=== PATIENT | male | born 1950 | race Caucasian/White ===

== ENCOUNTER 2018-01-29 16:26 | Emergency (ER) | payer MEDICARE, OTHER ==
[~2018-01-29] VITALS: Ht 175.3 cm; Wt 103.9 kg
[2018-01-29] MEDS ORDERED: GLIPIZIDE 10 MG10 MG PO (16:48)
[2018-01-29] MEDS ORDERED: LISINOPRIL10 MG PO (16:49)
[2018-01-29] MEDS ORDERED: CELEXA10 MG PO (16:49)
[2018-01-29] MEDS ORDERED: NORVASC2.5 MG PO (16:49)
[2018-01-29] MEDS ORDERED: TOPROL XL100 MG PO (16:49)
[2018-01-29] MEDS ORDERED: ASPIR 8181 MG PO (16:49)
[2018-01-29] MEDS ORDERED: B12INJ IM (16:50)
[2018-01-29] MEDS ORDERED: ZOCOR20 MG PO (16:50)
[2018-01-29] MEDS ORDERED: METOLAZONE 2.52.5 M1 PO (16:50)
[2018-01-29] MEDS ORDERED: NOVOLOG100 UNIT/1 SUBQ (16:51)
[2018-01-29] MEDS ORDERED: BENADRYL25 MG PO (16:51)
[2018-01-29] MEDS ORDERED: FOLGARD TABLET1 EAC1 PO (16:51)
[2018-01-29] MEDS ORDERED: BACTRIM DS TAB1 EACH PO (17:22)
[2018-01-29] MEDS ORDERED: KEFLEX500 M1 PO (17:22)
[2018-01-29 18:30] VITALS: BP 120/60
== END 2018-01-29 18:31 | disposition home or self-care (01) ==
LOC: M.ERS 16:26
DX: L60.0 Ingrowing nail (principal); L03.031 Cellulitis of right toe; E11.9 Type 2 diabetes mellitus without complications; I10 Essential (primary) hypertension; E78.00 Pure hypercholesterolemia, unspecified; Z79.4 Long term (current) use of insulin

== ENCOUNTER → 2018-06-10 | Outpatient (CLI) | payer MEDICARE, OTHER ==
[~2018-06-10] MED LIST: ASPIR 8181 MG PO; B12INJ IM; BACTRIM DS TAB1 EACH PO; BENADRYL25 MG PO; CELEXA10 MG PO; FOLGARD TABLET1 EAC1 PO; GLIPIZIDE 10 MG10 MG PO; KEFLEX500 M1 PO; LISINOPRIL10 MG PO; METOLAZONE 2.52.5 M1 PO; NORVASC2.5 MG PO; NOVOLOG100 UNIT/1 SUBQ; TOPROL XL100 MG PO; ZOCOR20 MG PO
== END ==
LOC: M.RAD 12:41
DX: L03.031 Cellulitis of right toe (principal); E11.9 Type 2 diabetes mellitus without complications; M19.071 Primary osteoarthritis, right ankle and foot; I10 Essential (primary) hypertension; E78.00 Pure hypercholesterolemia, unspecified; Z79.4 Long term (current) use of insulin

== ENCOUNTER → 2018-08-04 | Outpatient (CLI) | payer MEDICARE, OTHER ==
[2018-08-04 13:51] LABS: CALCIUM 8.5 mg/dL (8.5-10.1); CREATININE 1.6 mg/dL (0.6-1.3); POTASSIUM 4.8 mmol/L (3.5-5.1)
== END ==
LOC: M.LAB 13:19
PROVIDERS: Surgery Vascular Surgery
DX: I70.213 Atherosclerosis of native arteries of extremities with intermittent claudication, bilateral legs (principal)

== ENCOUNTER 2019-02-13 16:43 | Inpatient (IN) | payer MEDICARE, OTHER ==
[~2019-02-13] VITALS: Ht 177.8 cm; Wt 104.3 kg
--- NOTE | ~2019-02-13 | CON ---
[address] [address] CONSULTATION Name: MOISE FAIRBANKS Room: [address] IN .R.#: [id number] Admission: 02/13/19 Attend Phys: Robyn Cardozo Discharge: Date of : 52 Report #: [id number] THIS REPORT FOR: //name// CC: Meryl Gloria DATE OF SERVICE: 02/15/2019 CHIEF COMPLAINT: Followup of total toenail avulsion to the right hallux for paronychia and lower extremity cellulitis. He is on parenteral vancomycin and ceftriaxone. He denies fevers, chills or malaise. He has good appetite. Denies pain to the toe. LABORATORY DATA: WBC 8.5, RBC 3.76, hemoglobin 11.3, hematocrit 33.1 and platelets 248,000. BUN 28, creatinine 1.2 and glucose 158. PHYSICAL EXAMINATION: VITAL SIGNS: Temperature 98.3, pulse 69, respirations 18 and blood pressure 124/42. EXTREMITIES: There is a substantial decrease in inflammation and cellulitis to the right lower extremity, which has receded and localized to the base of the right great toe. The nail bed has red granulation. No necrosis or fibronecrotic tissue. No exposed bone or tendon. The hallux has immediate digital capillary refill, with no signs of acute vascular embarrassment. The right lower extremity cellulitis is nearly resolved, with some residual low-grade inflammation to the hallux. His feet are warm, with palpable dorsalis pedis and posterior tibial pulses. 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 PLAN: The nail bed was cleansed, dried and dressed with gentamicin cream, Aquacel Ag and rolled gauze. The patient may ambulate in a surgical shoe, weightbearing as tolerated. Daily dressing changes to be performed same as above. I will follow up with the patient at [facility] next Thursday afternoon. By: 1235 0213Ddeepthi Manuel DPM /lauren
--- NOTE | ~2019-02-13 | CON ---
[address] [address] CONSULTATION Name: MOISE FAIRBANKS Room: [address] IN [facility]#: [id number] Admission: 02/13/19 Attend Phys: Robyn Cardozo Discharge: Date of : 52 Report #: [id number] THIS REPORT FOR: //name// CC: Meryl Gloria DATE OF SERVICE: 02/14/2019 REASON FOR CONSULTATION: Paronychia, right great toe with right lower extremity cellulitis complicated by type 2 diabetes mellitus. CHIEF COMPLAINT: The patient is a 68-year-old male admitted through the ED for worsening cellulitis to the right lower leg with great toenail infection. He had the medial aspect of the right great toenail removed at the [facility] last week, and was placed on oral cephalexin and Bactrim. He has had worsening inflammation, swelling and pain to the right lower extremity. He denies fevers, chills or malaise. 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 He is currently on parenteral vancomycin and ceftriaxone. Foot radiographs are negative for osteomyelitis. Venous Doppler negative for DVT. LABORATORY DATA: WBC 10.4, RBC 3.73, hemoglobin 11.2, hematocrit 33.2, platelets 258. BUN 54, creatinine 1.7, glucose 291, albumin 3.1. PHYSICAL EXAMINATION: Temperature 97.6, pulse 70, respiration 17, blood pressure 104/36. There is atul paronychia to the right great toe, medial border. The toenail is severely dystrophic and incurvated at the medial aspect with localized inflammation. The erythema extends from the base of the toe up along the dorsal foot to the lower leg consistent with resolving cellulitis. There is no exposed bone or tendon. The hallux is nontender due to neuropathy. There is scant serous drainage on his bandage and malodor. The remaining toenails are dystrophic consistent with onychomycosis. He has venous stasis dermatitis to both legs with +2 nonpitting edema. He has tinea pedis to his plantar feet bilaterally. IMPRESSION: Paronychia, right hallux, medial border with right lower extremity cellulitis. PLAN: The right great toenail was avulsed with a sterile nail forceps. No local anesthesia was used due to patient's profound peripheral sensory neuropathy. The nail bed was cleansed with saline, dried and dressed with silver foam and gauze. I will order topical gentamicin for subsequent daily dressing changes. I will follow the patient daily during his hospitalization. By: 1720 0321Ddeepthi Manuel DPM /lauren
[~2019-02-13 16:43] MED LIST changes: -B12INJ IM; +B12INJ PO; -LISINOPRIL10 MG PO; +NORVASC10 MG PO; -NORVASC2.5 MG PO; +ZESTRIL40 MG PO
[2019-02-13 16:51] VITALS: BP 104/59
[2019-02-13] MEDS ORDERED: GLUMETZA500 PO (16:57)
[2019-02-13] MEDS ORDERED: LIPITOR 20 MG T20 M1 PO (16:58)
[2019-02-13] MEDS ORDERED: LANTUS100 UNIT/M SUBQ (16:58)
[2019-02-13] MEDS ORDERED: OZEMPIC0.25 MG/0. IM (16:59)
[2019-02-13] MEDS ORDERED: PLAVIX 75 MG TA75 M1 PO (16:59)
[2019-02-13 17:21] LABS: ABSOLUTE BASOPHILS 0.1 thou/uL (0.0-0.2); ABSOLUTE EOSINOPHILS 0.3 thou/uL (0.0-0.7); ABSOLUTE LYMPHOCYTES 2.2 thou/uL (0.8-5.3); ABSOLUTE MONOCYTES 0.8 thou/uL (0.0-1.2); BASOPHILS 0.9 %; EOSINOPHILS 2.8 %; HEMATOCRIT 33.2 % (42.0-52.0); HEMOGLOBIN 11.2 gm/dL (14.0-18.0); LYMPHOCYTES 21.4 %; MCHC 33.7 g/dL (28.0-37.0); MCV 88.9 fL (80.0-100.0); MONOCYTES 7.4 %; MPV 7.8 fl. (7.2-11.1); NUCLEATED RBCS 0 /100WBC; PLATELET COUNT* 258 thou/uL (150-400); POLYS 67.5 %; RBC 3.73 mil/uL (4.50-6.00); WBC 10.4 thou/uL (4.0-11.0)
[2019-02-13 17:32] LABS: CALCIUM 8.6 mg/dL (8.5-10.1); CREATININE 1.7 mg/dL (0.6-1.3); POTASSIUM 4.5 mmol/L (3.5-5.1)
[2019-02-13 17:33] LABS: INR 0.9; PROTIME 9.6 Seconds (9.20-11.50)
[2019-02-13 17:37] LABS: ALBUMIN 3.1 g/dL (3.4-5.0); TOTAL BILIRUBIN 0.4 mg/dL (<0.1-1.0); TOTAL PROTEIN 7.1 g/dL (6.4-8.2)
[2019-02-13 20:40] VITALS: BP 150/53
[2019-02-13 21:00] VITALS: BP 120/44
[2019-02-13] MEDS ORDERED: CELEXA20 MG PO (21:29)
--- NOTE | 2019-02-14 06:07 | NUR ---
PATIENT ARRIVED ON THE FLOOR FROM ER ABOUT 2044. PATIENT ADMISSION HISTORY AND ASSESSMENT WAS COMPLETED CHARTED. IV ANTIBIOTICS WERE GIVEN ORDERED. PICTURE WAS PLACED ON CHART OF RIGHT FOOT CELLULITIS. PATIENT HAS HAD NO COMPLAINTS OF PAIN. WILL CONTINUE TO MONITOR.
[2019-02-14 07:50] VITALS: BP 128/40
[2019-02-14] MEDS ORDERED: LYRICA100 MG PO (10:52)
--- NOTE | 2019-02-14 13:53 | NUR ---
MANAGER GAMES SPOKE TO THE PATIENT TO DISCUSS HIS HOME SITUATION, DISCHARGE PLANNING, AND TO INFORM OF THE ROLE OF CM. PATIENT ALERT, ORIENTED, ADN INDEPENDENT AND ACTIVE. PATIENT IS QAGAN TAYAGUNGIN. PATIENT USES A CPAP AT [facility] AND BROUGHT IT HER TO [facility] WITH HIM. PATIENT ALSO OWNS A WALKER AND CANE, BUT DOES NOT USES THEM. PATIENT HAS A HX OF HH AND SNF, BUT THE WERE IN [place], [place]. PATIENT IS CURRENTLY IN I.V. ABT (ZOSYN), BUT IT IS UNCLEAR AT THIS TIME IF I.V. ABT'S WILL BE NEEDED AT D/C. PATIENT RESIDES AT HOME WITH SPOUSE AND SHE IS AVAILABLE TO ASSIST HIM WITH CARES NEEDED. CM WILL REMAIN AVAILABLE TO ASSIST AND FOLLOW NEEDED.
--- NOTE | 2019-02-14 14:28 | NUR ---
PT REPORTS UP AD INDRA IN ROOM W/O ANY NOTED DIFFICULTIES. PT INDICATES HE DOES NOT FEEL ACUTE PT SERVICES ARE INDICATED AT THIS TIME. WILL DISCHARGE PT ORDERS PER PT REQUEST.
[2019-02-14 16:00] VITALS: BP 104/36
--- NOTE | 2019-02-14 16:22 | NUR ---
PATIENT GIVEN PRN OXY IR FOR PAIN, GOOD RELIEF NOTED. IVF AND SCHED ABX INFUSING. PATIENT CHANGED FROM ZOSYN TO ROCEPHIN AND VANCOMYCIN. METFORMIN DC'D AND SSI STARTED THIS AFTERNOON. UP AD INDRA, NO DIFFICULTY NOTED. DR. KIMBALL FROM PODIATRY CONSULTED. PATIENT REFUSED PILLOW FOR RIGHT FOOT ELEVATION.
[2019-02-14 21:00] VITALS: BP 145/58
--- NOTE | 2019-02-15 05:24 | NUR ---
PT ALERT AND ORIENTED. VSS ON RA. MEDS GIVEN PER EMAR. PT WORE HOME CPAP @ HS. NO COMPLAINTS OF NAUSEA, PAIN THIS SHIFT. SMALL DRAINAGE NOTED ON DRESSING. OTHERWISE INTACT. PT UP AD INDRA. CALL LIGHT WITHIN REACH. HOURLY ROUNDINGS MADE. WILL CONTINUE TO MONITOR.
[2019-02-15 05:30] LABS: ABSOLUTE BASOPHILS 0.1 thou/uL (0.0-0.2); ABSOLUTE EOSINOPHILS 0.3 thou/uL (0.0-0.7); ABSOLUTE MONOCYTES 0.5 thou/uL (0.0-1.2); ABSOLUTE NEUTROPHILS 5.6 thou/uL (1.6-8.1); BASOPHILS 0.7 %; EOSINOPHILS 3.3 %; HEMATOCRIT 33.1 % (42.0-52.0); HEMOGLOBIN 11.3 gm/dL (14.0-18.0); LYMPHOCYTES 23.9 %; MCH 30.1 pg (26.0-34.0); MCHC 34.2 g/dL (28.0-37.0); MCV 88.2 fL (80.0-100.0); MONOCYTES 6.4 %; MPV 8.3 fl. (7.2-11.1); NUCLEATED RBCS 0 /100WBC; PLATELET COUNT* 248 thou/uL (150-400); POLYS 65.7 %; RBC 3.76 mil/uL (4.50-6.00); RDW-CV 13.9 % (10.5-14.5); WBC 8.5 thou/uL (4.0-11.0)
[2019-02-15 05:54] LABS: CALCIUM 8.7 mg/dL (8.5-10.1); CREATININE 1.2 mg/dL (0.6-1.3); MAGNESIUM 1.6 mg/dL (1.8-2.4)
[2019-02-15 07:30] VITALS: BP 124/42
[2019-02-15 12:53] VITALS: BP 124/42
--- NOTE | 2019-02-15 13:03 | NUR ---
DR. KIMBALL HERE THIS AFTERNOON TO SEE PATIENT, DRESSING CHANGED TO RIGHT GREAT TOE. WOUND CENTER APPT MADE FOR PATIENT WHEN HE DISCHARGES. IVF AND SCHED ABX INFUSING. INSULIN GIVEN WITH MEALS PER MAR SCALE.
[2019-02-15 15:48] VITALS: BP 117/41
--- NOTE | 2019-02-15 17:27 | NUR ---
PATIENT IS ALERT AND ORIENTED TODAY VERY PLEASANT. UP AD INDRA IN ROOM. SOME PAIN THAT IS SOMEWHAT CONTROLLED WITH ORAL PAIN MEDICATIONS. VITAL SIGNS ARE STABLE ON ROOM AIR. AGREE WITH PEVIOUS NURSES ASSESSMENT FROM TODAY. CALL LIGHT IS IN REACH WILL CONTINUE TO MONITOR.
[2019-02-15 20:20] VITALS: BP 147/73
--- NOTE | 2019-02-16 07:46 | NUR ---
PT HAD A ROUGH NIGHT. MULTIPLE NAUSEA AND EMESIS NOTED THIS SHIFT. ZOFRAN GIVEN Q4 PER DR ACHARYA'S ORDER. [place]ON [place] ALSO GIVEN. WITH LITTLE RELIEF NOTED. VSS ON RA. HOURLY ROUNDINGS MADE. CALL LIGHT WITHIN REACH. WILL CONTINUE TO MONITOR.
[2019-02-16 08:30] VITALS: BP 158/60
[2019-02-16] MEDS ORDERED: LANTUS100 UNIT/M SUBQ (11:43)
[2019-02-16] MEDS ORDERED: KEFLEX500 M1 PO (11:44)
[2019-02-16] MEDS ORDERED: MINOCIN50 MG PO (11:45)
[2019-02-16] MEDS ORDERED: SENNA S TABLET1 EACH PO (11:46)
[2019-02-16 14:00] VITALS: BP 124/42
[2019-02-16 14:45] VITALS: BP 124/42
--- NOTE | 2019-02-16 16:44 | NUR ---
I ASSUMED CARE OF THE PATIENT AT 0700. HE IS ALERT AND ORIENTED X4 AND IS UP AD INDRA IN HIS ROOM. BED IS IN THE LOW LOCKED POSITION AND CALL LIGHT IS IN REACH. HOURLY ROUNDING IS COMPLETED AND PATIENT NEEDS ARE MET. DRESSING IS RE-WRAPPED. PAIN IS DENIED AND ZOFRAN IS GIVEN EVERY 4 HOURS. HE IS DISCHARGED WITH UNDERSTANDING OF DRESSING CHANGES AND FOLLOW UP APPOINTMENTS. SCRIPTS ARE GIVEN. WOUND CARE SUPPLIES ARE SENT WITH THE PATIENT UNTIL HIS FOLLOW UP. LEFT WITH IN PERSONAL VEHICLE AT 1445.
== END 2019-02-16 14:45 | disposition home or self-care (01) | DRG 602 ==
LOC: M.ERS 16:43 → M.ORTHSURG 19:27 → M.TBA-ER 19:27 → M.ORTHSURG 20:36
PROVIDERS: Family Medicine; Nurse Practitioner Family; ADMIT Internal Medicine
DX: L03.115 Cellulitis of right lower limb (principal); N17.0 Acute kidney failure with tubular necrosis; E11.9 Type 2 diabetes mellitus without complications; I10 Essential (primary) hypertension; E78.00 Pure hypercholesterolemia, unspecified; E11.42 Type 2 diabetes mellitus with diabetic polyneuropathy; G47.33 Obstructive sleep apnea (adult) (pediatric); E78.5 Hyperlipidemia, unspecified; E11.51 Type 2 diabetes mellitus with diabetic peripheral angiopathy without gangrene; Z79.2 Long term (current) use of antibiotics; Z79.899 Other long term (current) drug therapy

== ENCOUNTER → 2019-02-23 | Outpatient (CLI) | payer MEDICARE, OTHER ==
[~2019-02-23] MED LIST changes: +CELEXA20 MG PO; +GLUMETZA500 PO; +LANTUS100 UNIT/M SUBQ; +LIPITOR 20 MG T20 M1 PO; +LYRICA100 MG PO; +MINOCIN50 MG PO; +OZEMPIC0.25 MG/0. IM; +PLAVIX 75 MG TA75 M1 PO; +SENNA S TABLET1 EACH PO
== END ==
LOC: M.WC 05:11
DX: E11.621 Type 2 diabetes mellitus with foot ulcer (principal); E11.51 Type 2 diabetes mellitus with diabetic peripheral angiopathy without gangrene; E11.42 Type 2 diabetes mellitus with diabetic polyneuropathy; E11.22 Type 2 diabetes mellitus with diabetic chronic kidney disease; N18.9 Chronic kidney disease, unspecified; E78.5 Hyperlipidemia, unspecified; G47.33 Obstructive sleep apnea (adult) (pediatric); Z79.82 Long term (current) use of aspirin; Z89.422 Acquired absence of other left toe(s)

== ENCOUNTER → 2019-02-24 | Outpatient (CLI) | payer MEDICARE, OTHER ==
[~2019-02-24] MED LIST changes: +LANTUS SUBQ; +TRAZODONE HCL50 MG PO; +VITAMIN D31000 UNIT PO
[2019-02-24 07:31] LABS: ABSOLUTE BASOPHILS 0.1 thou/uL (0.0-0.2); ABSOLUTE EOSINOPHILS 0.7 thou/uL (0.0-0.7); ABSOLUTE LYMPHOCYTES 2.9 thou/uL (0.8-5.3); ABSOLUTE MONOCYTES 0.7 thou/uL (0.0-1.2); ABSOLUTE NEUTROPHILS 6.7 thou/uL (1.6-8.1); BASOPHILS 0.8 %; EOSINOPHILS 5.9 %; HEMOGLOBIN 11.2 gm/dL (14.0-18.0); LYMPHOCYTES 26.2 %; MCH 29.3 pg (26.0-34.0); MCV 88.9 fL (80.0-100.0); MONOCYTES 6.7 %; MPV 7.4 fl. (7.2-11.1); NUCLEATED RBCS 0 /100WBC; PLATELET COUNT* 334 thou/uL (150-400); POLYS 60.4 %; RBC 3.82 mil/uL (4.50-6.00); RDW-CV 14.7 % (10.5-14.5); WBC 11.1 thou/uL (4.0-11.0)
[2019-02-24 07:38] LABS: CALCIUM 9.4 mg/dL (8.5-10.1); CREATININE 1.5 mg/dL (0.6-1.3); POTASSIUM 4.8 mmol/L (3.5-5.1)
[2019-02-24 08:29] LABS: ESR (SEDRATE) 88 mm/hr (0-20)
== END ==
LOC: M.LAB 07:12 → M.RAD 08:00 → M.MRI 08:30
PROVIDERS: Podiatrist Foot & Ankle Surgery
DX: E11.621 Type 2 diabetes mellitus with foot ulcer (principal); M19.071 Primary osteoarthritis, right ankle and foot; M86.8X7 Other osteomyelitis, ankle and foot

== ENCOUNTER → 2019-03-02 | Outpatient (CLI) | payer MEDICARE, OTHER ==
[~2019-03-02] MED LIST changes: -LANTUS SUBQ; -TRAZODONE HCL50 MG PO; -VITAMIN D31000 UNIT PO
== END ==
LOC: M.WC 00:41
DX: E11.621 Type 2 diabetes mellitus with foot ulcer (principal); L97.511 Non-pressure chronic ulcer of other part of right foot limited to breakdown of skin; E11.40 Type 2 diabetes mellitus with diabetic neuropathy, unspecified; E11.51 Type 2 diabetes mellitus with diabetic peripheral angiopathy without gangrene; E11.22 Type 2 diabetes mellitus with diabetic chronic kidney disease; N18.9 Chronic kidney disease, unspecified; E78.5 Hyperlipidemia, unspecified; G47.33 Obstructive sleep apnea (adult) (pediatric); Z89.432 Acquired absence of left foot

== ENCOUNTER → 2019-03-09 | Outpatient (CLI) | payer MEDICARE, OTHER ==
[~2019-03-09] MED LIST changes: +LANTUS SUBQ; +TRAZODONE HCL50 MG PO; +VITAMIN D31000 UNIT PO
== END ==
LOC: M.WC 05:22
DX: E11.621 Type 2 diabetes mellitus with foot ulcer (principal); L97.511 Non-pressure chronic ulcer of other part of right foot limited to breakdown of skin; L03.031 Cellulitis of right toe; E11.40 Type 2 diabetes mellitus with diabetic neuropathy, unspecified; E11.51 Type 2 diabetes mellitus with diabetic peripheral angiopathy without gangrene; E11.22 Type 2 diabetes mellitus with diabetic chronic kidney disease; N18.9 Chronic kidney disease, unspecified; G47.33 Obstructive sleep apnea (adult) (pediatric); Z89.432 Acquired absence of left foot

== ENCOUNTER → 2019-03-16 | Day surgery (SDC) | payer MEDICARE, OTHER ==
--- NOTE | 2019-03-16 14:54 | EKG ---
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
--- NOTE | 2019-03-21 09:57 | OP ---
[address] [address] OPERATIVE REPORT Name: TIKIMOISE GREY Room: [facility]#: [id number] Admission: 03/16/19 Attend Phys: Ayan Freire DO Discharge: Date of : 52 Report #: [id number] THIS REPORT FOR: //name// CC: Ayan Chambers DATE OF SERVICE: 03/16/2019 PREOPERATIVE DIAGNOSIS: Severe peripheral vascular disease with osteomyelitis of the right first toe distal phalanx. POSTOPERATIVE DIAGNOSIS: Severe peripheral vascular disease with osteomyelitis of the right first toe distal phalanx. OPERATION: 1. Ultrasound-guided access to left common femoral artery. 2. Ultrasound-guided retrograde popliteal artery access. 3. Right superficial femoral artery and popliteal artery angioplasty and stent. 4. Partial right first toe amputation. SURGEON: Ayan Freire DO BUTCHER FISH: JESSICA Narayanan ANESTHESIA: General. ESTIMATED BLOOD LOSS: 50 mL. FLUIDS: 600 crystalloid. URINE OUTPUT: None. SPECIMENS: Left partial first toe amputation and the left first toe proximal phalanx sent for bone culture. IMPLANTS: 6 x 200 and a 6 x 150 LifeStent in the right superficial femoral and popliteal artery. FINDINGS: He had an ultrasound demonstrated the left common femoral artery to be soft and compressible, suitable for access. Initial aortogram demonstrated patent infrarenal aorta, bilateral common, external iliac arteries with some mild diffuse atherosclerotic disease. His internal iliac arteries were occluded. Right common femoral, deep femoral artery were patent with some mild to moderate atherosclerotic disease. Right superficial femoral artery was occluded from its origin to just below the adductor hiatus with reconstitution of the above-knee popliteal artery. This was otherwise patent and had kind of [facility] [address] [place] [address] OPERATIVE REPORT Name: MOISE FAIRBANKS Room: [facility]#: [id number] Admission: 03/16/19 Attend Phys: Ayan Freire DO Discharge: Date of : 52 Report #: [id number] mild diffuse stenosis. Primary runoff was via the anterior tibial, which had really no residual stenosis. His peroneal and posterior tibial artery appeared to occlude the mid calf. Following angioplasty and stenting of the right SFA and popliteal artery, had excellent flow with minimal residual stenosis, inline flow into the dorsalis pedis artery. He had excellent bleeding at the toe amputation site. CLINICAL HISTORY: The patient is a 68-year-old man with known peripheral vascular disease, presents with osteomyelitis of the right distal phalanx of the first toe, is needed revascularization, toe amputation. DESCRIPTION OF PROCEDURE: After informed consent was obtained, the patient was taken to the operating room and placed in the OR bed in the supine position, administered general anesthesia by Anesthesia team. Bilateral groins were prepped and draped in usual sterile fashion. Full timeout was performed identifying correct patient and procedure. Using ultrasound guidance, left common femoral artery was identified, was accessed with micropuncture needle. These images were preserved. Using Seldinger technique, a microwire and microsheath were placed, ultimately upsized to a 6-[place] sheath, advanced the flush catheter in the infrarenal aorta and performed the aortoiliofemoral angiogram with findings noted above. Obtained up and over access across the bifurcation, positioned catheter in the right common femoral artery, performed the selective right lower extremity angiogram with findings noted above. I then exchanged out for a Glidewire Advantage 6-[place] up-and-over sheath and administered 8000 units of intravenous heparin. I then used a combination of the Glidewire Advantage and Seeker catheter and attempted to cross the SFA occlusion in antegrade fashion; however, we were unable to get a true lumen reentry distally at the popliteal reconstitution. Therefore, I used ultrasound guidance and accessed the popliteal artery in a retrograde fashion again preserving these images. Again using Seldinger technique, a microwire and microsheath were placed, ultimately I was able to exchange out for a Glidewire Advantage and a Seeker catheter. I was able to navigate retrograde up the popliteal artery cross the SFA occlusion. I was able to gain intraluminal position within the common femoral artery and the wire was able to pass into the sheath and I was able to obtain body floss technique. I then was able to pass the Seeker catheter over the wire into the distal popliteal artery and removed the wire and then replaced in antegrade fashion. Followup imaging confirmed intraluminal position within the popliteal artery. I then serial angioplastied the superficial femoral artery with a 5-mm Ultraverse balloon and then subsequently stented extending from the proximal popliteal artery up to the SFA origin. Post-dilated the stents with the 6 mm balloon with a good result and had islam of inline flow through the SFA and popliteal artery into the primarily anterior tibial artery runoff. At this point, satisfied with the result, the wire and the sheath were backed in the left external iliac artery, exchanged out for a short 6-[place] sheath, performed an angiogram through the [address] [address] OPERATIVE REPORT Name: MOISE FAIRBANKS Room: [facility]#: [id number] Admission: 03/16/19 Attend Phys: Ayan Freire DO Discharge: Date of : 52 Report #: [id number] sheath to confirm access position. I then deployed a 6-[place] Mynx closure device in standard fashion, partially reversed the heparin with 40 mg of protamine. Manual pressure was held for 5 minutes. Once hemostasis was ensured, sterile dressing was applied. I then turned my attention to the right foot, made a circumferential incision around the mid part of the right first toe. Dissection was carried down sharply. I disarticulated the interphalangeal joint and passed the distal toe off for specimen. Used a rongeur and debrided back the proximal phalanx and sent the part of the proximal phalanx for culture as well. Debrided the wound, irrigated with antibiotic solution once hemostasis was ensured, and then closed with partial amputation with interrupted 2-0 nylon sutures. Sterile dressings were applied. All sponge, sharp, instrument counts reported correct x 2. He tolerated the procedure well and transferred to recovery in stable condition. <ELECTRONICALLY SIGNED> By: Ayan Freire DO 03/21/19 0957 1428 1952Acarmen Freire DO /nt
--- NOTE | 2019-03-28 18:06 | PATH ---
[address] [place] [address] PATHOLOGY RPT PROCEDURE Name: TIKIMOISE GREY Room: [facility].#: [id number] Admission: 03/16/19 Date of : 52 Discharge: Report #: [id number] Path Case #: [id number] [facility] Accession Number: [id number] . 01 Material submitted: . toe - RIGHT FIRST TOE. Modifiers: right, first . 01 Clinical history: . Atherosclerosis right leg. . 02 Diagnosis: Right first toe: - Benign toe (missing toenail), with nonspecific ulceration, acute inflammation of soft tissues and prominent osteomyelitis noted to extend to proximal bony margin. . (CAROL:mml; 03/21/2019) QLM/03/21/2019 . 02 Electronically signed: . Edmund Lambert MD, Pathologist NPI- [id number] . 01 Gross description: . Received in formalin labeled "Moise Weaver, right first toe" is a distal toe amputation specimen measuring 3.1 x 2.5 x 2.1 cm. The toe is absent of a toenail, but the nailbed is present. On the distal aspect of the nailbed is a martinez-collins irregular ulceration or possible lesion measuring 0.7 x 0.6 cm. This area is located 1.1 cm from the resection margin. The resection margin is smooth and grossly viable and is inked black. The specimen is sectioned and a small amount of underlying bone is present, which is easily cut. Repairer Pump sections are submitted in cassettes A1-A2 following decalcification. ([facility] [place]; 03/17/2019) SYC/SYC . 02 Pathologist provided ICD-10: L97.519, M86.171 . 02 CPT . 069455, 324195 Specimen Comment: A courtesy copy of this report has been sent to Specimen Comment: [phone], . Specimen Comment: Report sent to / DR RITTER Performed at: [address] [facility] [id number] MD Osman Meyer MD Phone: [phone] Performed at: [address] [place] [address] PATHOLOGY RPT PROCEDURE Name: MOISE WEAVER Room: [facility].#: [id number] Admission: 03/16/19 Date of : 52 Discharge: Report #: [id number] Path Case #: [id number] [facility] [address] [place] [id number] MD Edmund Lambert MD Phone: [phone]
== END | disposition home or self-care (01) ==
LOC: M.SUR 07:08
DX: I70.211 Atherosclerosis of native arteries of extremities with intermittent claudication, right leg (principal); M86.171 Other acute osteomyelitis, right ankle and foot; L97.519 Non-pressure chronic ulcer of other part of right foot with unspecified severity; M79.89 Other specified soft tissue disorders; E11.51 Type 2 diabetes mellitus with diabetic peripheral angiopathy without gangrene; E11.40 Type 2 diabetes mellitus with diabetic neuropathy, unspecified; I10 Essential (primary) hypertension; E78.00 Pure hypercholesterolemia, unspecified; E78.5 Hyperlipidemia, unspecified; G47.33 Obstructive sleep apnea (adult) (pediatric); Z79.899 Other long term (current) drug therapy; Z98.890 Other specified postprocedural states; Z79.82 Long term (current) use of aspirin; Z87.891 Personal history of nicotine dependence

== ENCOUNTER → 2019-03-23 | Outpatient (CLI) | payer MEDICARE, OTHER | LOC: M.WC 03:34 | DX: T87.89 Other complications of amputation stump (principal); E11.621 Type 2 diabetes mellitus with foot ulcer; L97.511 Non-pressure chronic ulcer of other part of right foot limited to breakdown of skin; E11.40 Type 2 diabetes mellitus with diabetic neuropathy, unspecified; E11.51 Type 2 diabetes mellitus with diabetic peripheral angiopathy without gangrene; E11.22 Type 2 diabetes mellitus with diabetic chronic kidney disease; N18.9 Chronic kidney disease, unspecified; E78.5 Hyperlipidemia, unspecified; G47.33 Obstructive sleep apnea (adult) (pediatric); Y83.5 Amputation of limb(s) as the cause of abnormal reaction of the patient, or of later complication, without mention of misadventure at the time of the procedure ==

== ENCOUNTER → 2019-04-12 | Outpatient (CLI) | payer MEDICARE, OTHER ==
[2019-04-12 14:35] LABS: HEMATOCRIT 37.9 % (42.0-52.0); HEMOGLOBIN 12.3 gm/dL (14.0-18.0)
[2019-04-12 14:49] LABS: CALCIUM 9.1 mg/dL (8.5-10.1); CREATININE 1.3 mg/dL (0.6-1.3); POTASSIUM 4.9 mmol/L (3.5-5.1)
== END ==
LOC: M.LAB 14:16
PROVIDERS: Surgery Vascular Surgery
DX: I70.213 Atherosclerosis of native arteries of extremities with intermittent claudication, bilateral legs (principal)

== ENCOUNTER → 2019-04-13 | Outpatient (CLI) | payer MEDICARE, OTHER | LOC: M.WC 05:14 | DX: T87.89 Other complications of amputation stump (principal); E11.621 Type 2 diabetes mellitus with foot ulcer; L97.512 Non-pressure chronic ulcer of other part of right foot with fat layer exposed; E11.40 Type 2 diabetes mellitus with diabetic neuropathy, unspecified; E11.51 Type 2 diabetes mellitus with diabetic peripheral angiopathy without gangrene; E11.22 Type 2 diabetes mellitus with diabetic chronic kidney disease; N18.9 Chronic kidney disease, unspecified; E78.5 Hyperlipidemia, unspecified; G47.33 Obstructive sleep apnea (adult) (pediatric); Y83.5 Amputation of limb(s) as the cause of abnormal reaction of the patient, or of later complication, without mention of misadventure at the time of the procedure ==

== ENCOUNTER → 2019-04-21 | Outpatient (CLI) | payer MEDICARE, OTHER | LOC: M.WC 05:09 | DX: T87.89 Other complications of amputation stump (principal); E11.621 Type 2 diabetes mellitus with foot ulcer; L97.511 Non-pressure chronic ulcer of other part of right foot limited to breakdown of skin; E11.22 Type 2 diabetes mellitus with diabetic chronic kidney disease; N18.9 Chronic kidney disease, unspecified; E11.40 Type 2 diabetes mellitus with diabetic neuropathy, unspecified; E11.51 Type 2 diabetes mellitus with diabetic peripheral angiopathy without gangrene; E78.5 Hyperlipidemia, unspecified; G47.33 Obstructive sleep apnea (adult) (pediatric); Y83.5 Amputation of limb(s) as the cause of abnormal reaction of the patient, or of later complication, without mention of misadventure at the time of the procedure ==

== ENCOUNTER → 2019-04-28 | Outpatient (CLI) | payer MEDICARE, OTHER | LOC: M.WC 04:43 | DX: T87.89 Other complications of amputation stump (principal); E11.621 Type 2 diabetes mellitus with foot ulcer; L97.518 Non-pressure chronic ulcer of other part of right foot with other specified severity; E11.40 Type 2 diabetes mellitus with diabetic neuropathy, unspecified; E11.51 Type 2 diabetes mellitus with diabetic peripheral angiopathy without gangrene; E11.22 Type 2 diabetes mellitus with diabetic chronic kidney disease; N18.9 Chronic kidney disease, unspecified; E78.5 Hyperlipidemia, unspecified; G47.33 Obstructive sleep apnea (adult) (pediatric); Y83.5 Amputation of limb(s) as the cause of abnormal reaction of the patient, or of later complication, without mention of misadventure at the time of the procedure ==

== ENCOUNTER → 2019-09-28 | Outpatient (CLI) | payer OTHER ==
[2019-09-28 14:33] LABS: HEMATOCRIT 35.6 % (42.0-52.0); HEMOGLOBIN 12.4 gm/dL (14.0-18.0)
[2019-09-28 14:35] LABS: CREATININE 1.4 mg/dL (0.6-1.3)
== END ==
LOC: M.LAB 13:57
PROVIDERS: Surgery
DX: I70.213 Atherosclerosis of native arteries of extremities with intermittent claudication, bilateral legs (principal)

== ENCOUNTER → 2019-10-07 | Outpatient (CLI) | payer OTHER | LOC: M.WC 08:00 | DX: E11.621 Type 2 diabetes mellitus with foot ulcer (principal); L97.512 Non-pressure chronic ulcer of other part of right foot with fat layer exposed; E11.622 Type 2 diabetes mellitus with other skin ulcer; I70.238 Atherosclerosis of native arteries of right leg with ulceration of other part of lower leg; L97.811 Non-pressure chronic ulcer of other part of right lower leg limited to breakdown of skin; E11.40 Type 2 diabetes mellitus with diabetic neuropathy, unspecified; E11.51 Type 2 diabetes mellitus with diabetic peripheral angiopathy without gangrene; E11.22 Type 2 diabetes mellitus with diabetic chronic kidney disease; N18.9 Chronic kidney disease, unspecified; E78.5 Hyperlipidemia, unspecified; G47.33 Obstructive sleep apnea (adult) (pediatric); Z79.4 Long term (current) use of insulin; Z89.422 Acquired absence of other left toe(s); Z89.412 Acquired absence of left great toe; Z79.82 Long term (current) use of aspirin ==

== ENCOUNTER → 2019-10-11 | Outpatient (CLI) | payer OTHER | LOC: M.WC 03:37 | DX: E11.621 Type 2 diabetes mellitus with foot ulcer (principal); I70.235 Atherosclerosis of native arteries of right leg with ulceration of other part of foot; L97.511 Non-pressure chronic ulcer of other part of right foot limited to breakdown of skin; I70.202 Unspecified atherosclerosis of native arteries of extremities, left leg; E11.40 Type 2 diabetes mellitus with diabetic neuropathy, unspecified; E11.51 Type 2 diabetes mellitus with diabetic peripheral angiopathy without gangrene; E11.22 Type 2 diabetes mellitus with diabetic chronic kidney disease; N18.9 Chronic kidney disease, unspecified; E78.5 Hyperlipidemia, unspecified; G47.33 Obstructive sleep apnea (adult) (pediatric); Z89.422 Acquired absence of other left toe(s); Z79.4 Long term (current) use of insulin; Z79.82 Long term (current) use of aspirin ==

== ENCOUNTER 2019-11-23 15:47 | Inpatient (IN) | payer OTHER ==
[~2019-11-23] VITALS: Ht 175.3 cm; Wt 99.7 kg
--- NOTE | ~2019-11-23 | CON ---
[address] [address] CONSULTATION Name: MOISE FAIRBANKS Room: [address] IN .R.#: [id number] Admission: 11/23/19 Attend Phys: Robyn Cardozo Discharge: Date of : 52 Report #: [id number] THIS REPORT FOR: //name// cc: Meryl Chambers NP, Tammy NP ~ THIS REPORT FOR: //name// CC: Meryl Gloria DATE OF SERVICE: 12/07/2019 CHIEF COMPLAINT: Postoperative right foot with transmetatarsal amputation for osteomyelitis. He is on parenteral Rocephin and Flagyl with good tolerance. Surgical cultures grew bacteroides ovatus on both soft tissue and bone cultures. Surgical pathology showed clear resection site to the right third, fourth and fifth metatarsals, which had osteomyelitis at the distal aspect. For clarification, the right distal third, fourth and fifth metatarsals and their associated toes had osteomyelitis per pathology, with clear metatarsal resection margins to the third, fourth, and fifth metatarsals. The first and second metatarsals were free of osteomyelitis. LABORATORY DATA: WBC 10.1, RBC 3.26, hemoglobin 8.6, hematocrit 25.9, platelets 265. BUN 39, creatinine 1.0, glucose 75. PHYSICAL EXAMINATION: The incision is well coapted with minimal inflammation and some black eschar indicative of early dehiscence to the lateral incision. No underlying fluctuance or crepitation. No drainage or bleeding. The foot is warm with no pallor, cyanosis or signs of acute vascular embarrassment. The patient can obtain 90 degrees ankle joint dorsiflexion at the ankle. No popliteal tenderness or adenopathy. Negative Homans' and Walters sign to both legs. IMPRESSION: Status post right transmetatarsal amputation for osteomyelitis with clear resection margins, type 2 diabetes mellitus. PLAN: The incision was cleansed and redressed with Aquacel Ag, ABDs, and Kerlix with PRAFO boot. The patient to remain strictly nonweightbearing to the extremity. Awaiting halfway facility placement. By: 1413 2201Ddeepthi Manuel DPM /lauren
[2019-11-23 15:55] VITALS: BP 164/68
[2019-11-23 16:26] LABS: ABSOLUTE EOSINOPHILS 0.2 thou/uL (0.0-0.7); ABSOLUTE LYMPHOCYTES 1.6 thou/uL (0.8-5.3); ABSOLUTE MONOCYTES 0.6 thou/uL (0.0-1.2); ABSOLUTE NEUTROPHILS 7.8 thou/uL (1.6-8.1); BASOPHILS 0.2 %; EOSINOPHILS 2.1 %; HEMATOCRIT 26.3 % (42.0-52.0); HEMOGLOBIN 8.6 gm/dL (14.0-18.0); LYMPHOCYTES 15.9 %; MCHC 32.8 g/dL (28.0-37.0); MCV 82.2 fL (80.0-100.0); MONOCYTES 5.8 %; MPV 7.6 fl. (7.2-11.1); NUCLEATED RBCS 0 /100WBC; PLATELET COUNT* 326 thou/uL (150-400); RDW-CV 16.9 % (10.5-14.5); WBC 10.3 thou/uL (4.0-11.0)
[2019-11-23 16:37] LABS: APTT 32.7 Seconds (25.0-31.3); INR 1.1; PROTIME 11.3 Seconds (9.20-11.50)
[2019-11-23 16:39] LABS: CALCIUM 7.9 mg/dL (8.5-10.1); CREATININE 1.2 mg/dL (0.6-1.3)
[2019-11-23 16:49] LABS: ALBUMIN 2.2 g/dL (3.4-5.0); TOTAL BILIRUBIN 0.4 mg/dL (<0.1-1.0); TOTAL PROTEIN 6.5 g/dL (6.4-8.2)
[2019-11-23 19:38] LABS: URINE BILIRUBIN NEGATIVE (Negative); URINE BLOOD TRACE (Negative); URINE CLARITY CLEAR; URINE COLOR YELLOW; URINE GLUCOSE-RANDOM NEGATIVE (Negative); URINE KETONES NEGATIVE (Negative); URINE LEUKOCYTES-REFLEX NEGATIVE (Negative); URINE NITRITE-REFLEX NEGATIVE (Negative); URINE PROTEIN 2+ (Negative); URINE SPECIFIC GRAVITY 1.015 (1.005-1.030)
[2019-11-23 19:59] LABS: SQUAMOUS 0-3 Few /LPF (0-3); URINE RBC 0-2 Rare /HPF (0-2); URINE WBC-REFLEX 0-5 Rare /HPF (0-5)
[2019-11-23 20:00] LABS: BACTERIA-REFLEX None Seen /HPF (None Seen); CASTS None Seen /LPF (None Seen); CRYSTALS None Seen /LPF (None Seen)
[2019-11-23 20:15] VITALS: BP 118/56
[2019-11-23 20:42] VITALS: BP 147/58
[2019-11-24] VITALS: BP 142/86
[2019-11-24 04:00] VITALS: BP 138/48
[2019-11-24 05:41] LABS: HEMATOCRIT 25.8 % (42.0-52.0); HEMOGLOBIN 8.5 gm/dL (14.0-18.0); MCH 26.8 pg (26.0-34.0); MCHC 32.8 g/dL (28.0-37.0); MCV 81.9 fL (80.0-100.0); MPV 7.9 fl. (7.2-11.1); NUCLEATED RBCS 0 /100WBC; PLATELET COUNT* 302 thou/uL (150-400); RBC 3.15 mil/uL (4.50-6.00); RDW-CV 16.9 % (10.5-14.5); WBC 8.6 thou/uL (4.0-11.0)
[2019-11-24 06:06] LABS: CALCIUM 7.8 mg/dL (8.5-10.1); TOTAL BILIRUBIN 0.4 mg/dL (<0.1-1.0); TOTAL PROTEIN 6.3 g/dL (6.4-8.2)
[2019-11-24 06:46] LABS: ABSOLUTE LYMPHOCYTES 0.5 thou/uL (0.8-5.3); ABSOLUTE NEUTROPHILS 8.1 thou/uL (1.6-8.1); PLATELET ESTIMATE ADEQUATE
[2019-11-24 06:47] LABS: ANISOCYTOSIS 1+; POIKILOCYTOSIS 1+
[2019-11-24 08:30] VITALS: BP 124/50
[2019-11-24 12:16] VITALS: BP 116/41
--- NOTE | 2019-11-24 16:32 | EKG ---
[place] [address] ELECTROCARDIOGRAM REPORT Name: MOISE FAIRBANKS Room: [address] ADM IN 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: : 1950 Requested By: Joseluis King Order Number: [id number] MD: Tom Varghese Measurements Intervals [place] Rate: 84 P: 3 GA: 110 QRS: 35 QRSD: 81 T: 130 QT: 374 QTc: 443 Interpretive Statements Sinus rhythm with frequent pac's Borderline short GA interval Nonspecific T abnrm, anterolateral leads Baseline wander in lead(s) V1 Compared to ECG 03/16/2019 10:47:02 pac's are noted Electronically Signed On 11-24-2019 16:30:49 CDT by Tom Varghese [email or web address] <ELECTRONICALLY SIGNED> By: Tom Varghese MD, FACC 11/24/19 1630 1648 1648 Tom Varghese MD, [facility] /EPI
--- NOTE | 2019-11-24 16:34 | EKG ---
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1950 Requested By: Joseluis King Order Number: [id number] Antonio MD: Tom Varghese Measurements Intervals [place] Rate: 148 P: 80 [place]: 177 QRS: 45 QRSD: 97 T: 225 QT: 270 QTc: 424 Interpretive Statements Sinus tachycardia with pac's Borderline low voltage, extremity leads Repolarization abnormality, prob rate related, ischemia to be considered Compared to ECG 03/16/2019 10:47:02 Early repolarization now present ST (T wave) deviation now present Sinus rate has increased Electronically Signed On 11-24-2019 16:33:22 CDT by Tom Varghese [email or web address] <ELECTRONICALLY SIGNED> By: Tom Varghese MD, [facility] 11/24/19 1633 1734 1734 Tom Varghese MD, [facility] /EPI
--- NOTE | 2019-11-24 16:36 | EKG ---
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: : 1950 Requested By: Joseluis King Order Number: [id number] Antonio MD: Tom Varghese Measurements Intervals [place] Rate: 153 P: [place]: QRS: 51 QRSD: 77 T: 207 QT: 251 QTc: 401 Interpretive Statements Sinus tachycardia with frequent pac's Repolarization abnormality, prob rate related, consider ischemia Baseline wander in lead(s) III Compared to ECG 03/16/2019 10:47:02 no significant change Electronically Signed On 11-24-2019 16:35:06 CDT by Tom Varghese [email or web address] <ELECTRONICALLY SIGNED> By: Tom Varghese MD, [facility] 11/24/19 1635 1737 1737 Tom Varghese MD, [facility] /EPI
[2019-11-24] MEDS ORDERED: INSULIN AS100 UNIT/1 SUBQ (17:18)
--- NOTE | 2019-11-24 18:17 | 2DMMODE ---
[place] [address] 2 D/M-MODE ECHOCARDIOGRAM Name: MOISE FAIRBANKS Room: [address] IN [facility]#: [id number] Admission: 11/23/19 Attend Phys: Alexis Gloria Discharge: Date of : 52 Date of Service: 11/24/19 1816 Report #: [id number] THIS REPORT FOR: cc: Meryl Chambers NP, Tammy NP Liston, Michael J. MD [facility] ~ APPROVED REPORT Study performed: 11/24/2019 13:21:07 EXAM: Comprehensive 2D, Doppler, and color-flow Echocardiogram Patient Location: In-Patient Room #: [facility] Status: routine BSA: 2.12 HR: 68 bpm BP: 116/41 mmHg Rhythm: NSR Other Information Study Quality: Good Indications BNP ELEVATED 2D Dimensions IVSd: 8.72 (7-11mm) LVOT Diam: 19.81 (18-24mm) LVDd: 50.55 mm PWd: 8.34 (7-11mm) Ascending Ao: 34.27 (22-36mm) LVDs: 35.58 (25-40mm) Aortic Root: 32.45 mm Volumes Left Atrial Volume (Systole) LA ESV Index: 34.70 mL/m2 Aortic Valve AoV Peak Paramjit.: 1.91 m/s AO Peak Gr.: 14.67 mmHg LVOT Max P.18 mmHg AO Mean Gr.: 8.42 mmHg LVOT Mean P.63 mmHg LVOT Max V: 1.14 m/s AO V2 VTI: 40.53 cm LVOT Mean V: 0.76 m/s DEYSI (VTI): 1.89 cm2 LVOT V1 VTI: 24.90 [place] [address] 2 D/M-MODE ECHOCARDIOGRAM Name: MOISE FAIRBANKS Room: [address] IN [facility]#: [id number] Admission: 11/23/19 Attend Phys: Alexis Gloria Discharge: Date of : 52 Date of Service: 11/24/19 1816 Report #: [id number] Mitral Valve E/A Ratio: 1.54 MV Decel. Time: 190.23 ms MV E Max Paramjit.: 1.69 m/s MV PHT: 55.17 ms MVA (PHT): 3.99 cm2 TDI E/Lateral E': 28.17 E/Medial E': 24.14 Medial E' Paramjit.: 0.07 m/s Lateral E' Paramjit.: 0.06 m/s Pulmonary Valve PV Peak Paramjit.: 0.91 m/s PV Peak Gr.: 3.32 mmHg Left Ventricle The left ventricle is normal size. There is normal LV segmental wall motion. There is normal left ventricular wall thickness. Left ventricular systolic function is normal. LVEF is 55-60%. Moderate diastolic dysfunction is present (pseudonormal filling). Right Ventricle The right ventricle is normal size. The right ventricular systolic function is normal. Atria Left atrium is mildly dilated. The right atrium size is normal. Aortic Valve Moderate aortic valve sclerosis. Trace aortic regurgitation. Mild aortic stenosis. Mitral Valve There is mitral annular calcification. Mild mitral regurgitation. No evidence of mitral valve stenosis. Tricuspid Valve The tricuspid valve is normal in structure. Trace tricuspid regurgitation. Unable to assess PA pressure. Pulmonic Valve The pulmonary valve is normal in structure. Trace pulmonic regurgitation[place] [address] 2 D/M-MODE ECHOCARDIOGRAM Name: MOISE FAIRBANKS Room: [address]#: [id number] Admission: 11/23/19 Attend Phys: Alexis Gloria Discharge: Date of : 52 Date of Service: 11/24/19 1816 Report #: [id number] The aortic root is normal in size. IVC is normal in size and collapses >50% with inspiration. Pericardium There is no pericardial effusion. <Conclusion> The left ventricle is normal size. There is normal left ventricular wall thickness. Left ventricular systolic function is normal. LVEF is 55-60%. Moderate diastolic dysfunction is present (pseudonormal filling). Left atrium is mildly dilated. Moderate aortic valve sclerosis. Trace aortic regurgitation. Mild aortic stenosis. There is mitral annular calcification. Mild mitral regurgitation. Trace tricuspid regurgitation. Unable to assess PA pressure. IVC is normal in size and collapses >50% with inspiration. <ELECTRONICALLY SIGNED> By: Lauri Boo MD, FACC 11/24/191815 15 15 Lauri Boo MD, FACC /INF
[2019-11-24 20:12] VITALS: BP 130/56
[2019-11-25] VITALS: BP 117/48
[2019-11-25 04:00] VITALS: BP 137/45
[2019-11-25 05:29] VITALS: BP 135/56
[2019-11-25 07:35] VITALS: BP 117/48
[2019-11-25 12:00] VITALS: BP 131/45
--- NOTE | 2019-11-25 17:41 | CON ---
[address] [address] CONSULTATION Name: MOISE FAIRBANKS Room: [address] IN .R.#: [id number] Admission: 11/23/19 Attend Phys: Robyn Cardozo Discharge: Date of : 52 Report #: [id number] THIS REPORT FOR: //name// cc: Meryl Chambers NP, Tammy NP ~ THIS REPORT FOR: //name// CC: Meryl Gloria DATE OF SERVICE: 11/25/2019 INFECTIOUS DISEASE CONSULTATION ATTENDING PHYSICIAN: Dr. Ryan REASON FOR EVALUATION: Gangrene associated with the lateral aspect of the right foot, specifically involving the fourth and fifth toes as well as partially involving the third toe. HISTORY OF PRESENT ILLNESS: The patient has a known history of diabetes mellitus, complicated by peripheral neuropathy, has a significant vasculopathy, and has had previous procedures undertaken for revascularization of the right lower extremity. At this point, there is not felt to be any additional intervention that would help. He presented to the Emergency Room due to the gangrenous changes he noted. He denied any fevers. He denies any significant pulmonary or gastrointestinal related complaints. He is not encephalopathic. Empirically, he was started on therapy with metronidazole, levofloxacin, and single dose of vancomycin. ALLERGIES: None known. CURRENT MEDICATIONS: Include aspirin, citalopram, clopidogrel, cyanocobalamin, metolazone, lisinopril, metronidazole, trazodone, insulin, atorvastatin, glipizide, levofloxacin, insulin, metformin, pregabalin, and amlodipine. PAST MEDICAL HISTORY: Diabetes mellitus type 2, insulin requiring; peripheral neuropathy; hypertension; elevated cholesterol; and previous multiple toe amputations including on the left. SOCIAL HISTORY: Former smoker. No ethanol. No illicit drug use. FAMILY HISTORY: Noncontributory. REVIEW OF SYSTEMS: Otherwise, unremarkable 10-[place] [address] CONSULTATION Name: TIKIMOISE A Room: [address]#: [id number] Admission: 11/23/19 Attend Phys: Robyn Cardozo Discharge: Date of : 52 Report #: [id number] PHYSICAL EXAMINATION: GENERAL: He is alert, cooperative, and appropriate. He appears to be reasonably well nourished. He is not encephalopathic. VITAL SIGNS: Temperature 97.4, pulse 80, respirations 16, and blood pressure 131/45. SKIN: Warm and dry. No rashes. HEENT: Normocephalic. Extraocular muscles intact. NECK: Supple. LUNGS: Generally clear to auscultation. HEART: Regular. I do not appreciate murmur. ABDOMEN: Soft, nontender, and nondistended. EXTREMITIES: There are gangrenous changes noted on the right involving the lateral aspect distally engulfing the fourth and fifth toes onto the metatarsal region. Also, there is a plantar tissue infarct involving the third toe as well. There is a clear odor. There is a significant amount of marginal erythema. There is no purulence that I could appreciate. LABORATORY DATA: Blood cultures are sterile thus far. Initial CBC: White count of 8.6, H and H are 8.5 and 25.8, and platelets of 302. Electrolytes: Sodium 136, potassium 4.0, chloride 101, bicarbonate is 24, anion gap of 11, BUN and creatinine of 19 and 1.0, and glucose of 296. LFTs unremarkable. Albumin of 2.0, total protein 6.3, and estimated GFR of 74. Prealbumin of 9.8. Lactic acid initially 1.1. Urinalysis generally unremarkable. Arterial Doppler showed a graft. No evidence of high grade stenosis of the right common femoral or popliteal artery at length. ASSESSMENT AND PLAN: Gangrenous changes noted in the distal right lower extremity involving the fourth and fifth toes and partially the third. There is no active wet gangrene at this point. He is not overtly toxic. I think it is reasonable to continue empiric therapy. We would presume polymicrobial etiology anaerobes. At this point, it sounds as if plan is to allow autoamputation and see how he does clinically over the next 24-48 hours. We may well be able to transition to oral antibiotic. We will monitor expectantly. <ELECTRONICALLY SIGNED> By: Sean Barth MD 11/25/19 1741 1321 [id number] Barth MD /nt
[2019-11-25 20:03] VITALS: BP 125/45
[2019-11-26 03:31] LABS: CALCIUM 8.1 mg/dL (8.5-10.1); MAGNESIUM 1.5 mg/dL (1.8-2.4); POTASSIUM 3.5 mmol/L (3.5-5.1)
[2019-11-26 03:45] LABS: HEMOGLOBIN 8.6 gm/dL (14.0-18.0); MCH 27.1 pg (26.0-34.0); MCHC 33.2 g/dL (28.0-37.0); MCV 81.6 fL (80.0-100.0); MPV 7.5 fl. (7.2-11.1); RBC 3.19 mil/uL (4.50-6.00); RDW-CV 17.4 % (10.5-14.5); WBC 8.5 thou/uL (4.0-11.0)
[2019-11-26 09:30] VITALS: BP 110/60
[2019-11-26 16:00] VITALS: BP 125/46
[2019-11-26 20:03] VITALS: BP 110/63
[2019-11-27 03:46] LABS: HEMATOCRIT 27.4 % (42.0-52.0); HEMOGLOBIN 8.9 gm/dL (14.0-18.0); MCH 26.8 pg (26.0-34.0); MCHC 32.6 g/dL (28.0-37.0); MCV 82.2 fL (80.0-100.0); MPV 7.3 fl. (7.2-11.1); RBC 3.33 mil/uL (4.50-6.00); RDW-CV 17.1 % (10.5-14.5); WBC 10.1 thou/uL (4.0-11.0)
[2019-11-27 04:00] LABS: ALBUMIN 2.1 g/dL (3.4-5.0); CREATININE 1.1 mg/dL (0.6-1.3); MAGNESIUM 1.5 mg/dL (1.8-2.4); POTASSIUM 3.7 mmol/L (3.5-5.1); TOTAL BILIRUBIN 0.2 mg/dL (<0.1-1.0); TOTAL PROTEIN 5.9 g/dL (6.4-8.2)
[2019-11-27 08:50] VITALS: BP 115/49
[2019-11-27 16:49] VITALS: BP 117/43
[2019-11-27 20:14] VITALS: BP 124/56
[2019-11-28 20:00] VITALS: BP 118/44
[2019-11-29 10:09] VITALS: BP 114/57
[2019-11-29 19:55] VITALS: BP 124/66
[2019-11-30 00:15] VITALS: BP 104/54
[2019-11-30 04:00] VITALS: BP 114/47
[2019-11-30 08:10] VITALS: BP 121/61
[2019-11-30 12:00] VITALS: BP 126/44
[2019-11-30 14:31] LABS: ABSOLUTE BASOPHILS 0.1 thou/uL (0.0-0.2); ABSOLUTE EOSINOPHILS 0.1 thou/uL (0.0-0.7); ABSOLUTE LYMPHOCYTES 1.2 thou/uL (0.8-5.3); ABSOLUTE MONOCYTES 0.6 thou/uL (0.0-1.2); ABSOLUTE NEUTROPHILS 6.8 thou/uL (1.6-8.1); BASOPHILS 0.7 %; EOSINOPHILS 1.6 %; HEMATOCRIT 29.8 % (42.0-52.0); HEMOGLOBIN 9.6 gm/dL (14.0-18.0); LYMPHOCYTES 13.3 %; MCH 26.2 pg (26.0-34.0); MCV 81.8 fL (80.0-100.0); MONOCYTES 6.5 %; MPV 7.1 fl. (7.2-11.1); NUCLEATED RBCS 0 /100WBC; PLATELET COUNT* 368 thou/uL (150-400); POLYS 77.9 %; RBC 3.65 mil/uL (4.50-6.00); RDW-CV 17.5 % (10.5-14.5); WBC 8.7 thou/uL (4.0-11.0)
[2019-11-30 14:38] LABS: CALCIUM 8.5 mg/dL (8.5-10.1); CREATININE 1.2 mg/dL (0.6-1.3)
[2019-11-30 16:00] VITALS: BP 151/57
[2019-11-30 20:48] VITALS: BP 137/71
[2019-12-01 08:47] LABS: HEMATOCRIT 31.9 % (42.0-52.0); HEMOGLOBIN 10.2 gm/dL (14.0-18.0); MCH 25.9 pg (26.0-34.0); MCHC 31.9 g/dL (28.0-37.0); MCV 81.3 fL (80.0-100.0); MPV 7.1 fl. (7.2-11.1); RBC 3.93 mil/uL (4.50-6.00); WBC 12.7 thou/uL (4.0-11.0)
[2019-12-01 08:53] LABS: CALCIUM 8.7 mg/dL (8.5-10.1); CREATININE 1.1 mg/dL (0.6-1.3); POTASSIUM 4.2 mmol/L (3.5-5.1)
[2019-12-01 08:55] VITALS: BP 97/50
[2019-12-01 21:00] VITALS: BP 95/54
[2019-12-02] VITALS: BP 116/44
[2019-12-02 04:00] VITALS: BP 103/41
[2019-12-02 04:54] LABS: HEMATOCRIT 25.3 % (42.0-52.0); MCH 26.1 pg (26.0-34.0); MCHC 32.4 g/dL (28.0-37.0); MCV 80.4 fL (80.0-100.0); RBC 3.15 mil/uL (4.50-6.00); RDW-CV 17.8 % (10.5-14.5); WBC 10.4 thou/uL (4.0-11.0)
[2019-12-02 04:59] LABS: HEMOGLOBIN 8.2 gm/dL (14.0-18.0)
[2019-12-02 05:30] LABS: ALBUMIN 1.8 g/dL (3.4-5.0); CALCIUM 7.9 mg/dL (8.5-10.1); CREATININE 1.7 mg/dL (0.6-1.3); MAGNESIUM 1.7 mg/dL (1.8-2.4); PHOSPHORUS* 4.7 mg/dL (2.5-4.9)
[2019-12-02 09:10] VITALS: BP 103/50
[2019-12-02 13:00] VITALS: BP 94/47
[2019-12-02 20:22] VITALS: BP 104/40
[2019-12-03 05:31] VITALS: BP 105/40
[2019-12-03 09:00] VITALS: BP 116/48
[2019-12-03 16:08] VITALS: BP 100/58
[2019-12-04] VITALS: BP 112/49
[2019-12-04 15:00] VITALS: BP 112/40
[2019-12-04 21:06] VITALS: BP 110/39
[2019-12-05 08:00] VITALS: BP 106/44
[2019-12-05 08:36] LABS: HEMATOCRIT 28.5 % (42.0-52.0); MCH 25.6 pg (26.0-34.0); MCHC 31.7 g/dL (28.0-37.0); MCV 80.7 fL (80.0-100.0); RBC 3.53 mil/uL (4.50-6.00); WBC 13.1 thou/uL (4.0-11.0)
[2019-12-05 08:54] LABS: CALCIUM 8.5 mg/dL (8.5-10.1); CREATININE 1.2 mg/dL (0.6-1.3); PHOSPHORUS* 3.7 mg/dL (2.5-4.9); POTASSIUM 4.7 mmol/L (3.5-5.1)
[2019-12-05 16:00] VITALS: BP 111/43
[2019-12-05 20:30] VITALS: BP 130/36
[2019-12-06 04:30] VITALS: BP 127/60; BP 136/55
[2019-12-06 08:54] VITALS: BP 131/65
[2019-12-06 13:01] LABS: MAGNESIUM 1.8 mg/dL (1.8-2.4); PHOSPHORUS* 4.3 mg/dL (2.5-4.9); POTASSIUM 4.1 mmol/L (3.5-5.1)
[2019-12-06 16:00] VITALS: BP 102/47
--- NOTE | 2019-12-06 17:07 | PATH ---
[address] [address] PATHOLOGY RPT PROCEDURE Name: TIKIMOISE A Room: [address] IN M.R.#: [id number] Admission: 11/23/19 Date of : 52 Discharge: Report #: [id number] Path Case #: [id number] Accession Number: [id number] . 01 Material submitted: . foot - METATARSALS 1ST TO 5TH RIGHT FOOT AND TOES 1ST TO 5TH RIGHT FOOT. Modifiers: first, fifth, right . 01 Clinical history: . Gangrene right foot . 02 Diagnosis: Metatarsals first to fifth, toes first to fifth right foot: - Five benign toes including evidence of remote previous amputation of distal great toe and gangrenous/necrotic fourth and fifth toes, with extensive acute inflammation and necrosis of soft tissue of toes three, four and five and osteomyelitis of toes three, four and five. - Benign metatarsals three through five, each with osteomyelitis and each with surgical margins free of osteomyelitis. - Benign metatarsals one and two, without osteomyelitis identified. (CAROL:pit 12/06/2019) QTP 12/06/2019 1606 Local . 02 Electronically signed: . Edmund Lambert MD, Pathologist NPI- [id number] . 01 Gross description: . The specimen is received in formalin, labeled "Moise Weaver, metatarsals first to fifth, toes first to fifth right foot". Received are five amputated toes. The great toe is received separately measuring 4.3 x 3.2 x 2.7 cm. Toes 2 through 5 are attached to each other and have an overall measurement of 6.5 x 5.6 x 2.4 cm in greatest dimensions. The bone margins of toes 1 through 3 are smooth and concave in appearance, consistent with disarticulation. The bone margins of toes 4 and 5 are slightly jagged in appearance. Toes 4 and 5 are blackened and mummified in appearance. The distal/plantar aspect of toe 3 displays a poorly circumscribed, irregular in contour and brown-black lesion measuring 2.5 x 2.5 cm, which is 0.8 cm from the closest skin margin. Toe 2 displays a pale martinez to slightly dusky appearance on the epidermal surface. The nail is absent on the great toe and the epidermal surface is pale martinez to slightly dusky in appearance. The distal great toe appears to have been remotely previously amputated. Sectioning through the bone margins of toes margins have fragmented. Sectioning through the bone margins of toes 1 through 3 is unable to be accomplished by a scalpel. . Also received within the specimen container are five metatarsals. Metatarsals 1 through 4 are attached to each other and have an overall [facility] [address] [place] [address] PATHOLOGY RPT PROCEDURE Name: MOISE WEAVER Room: [address] IN .R.#: [id number] Admission: 11/23/19 Date of : 52 Discharge: Report #: [id number] Path Case #: [id number] measurement of 6.3 x 4.3 x 2.7 cm. The fifth metatarsal measures 3.2 x 1.6 x 1.6 cm in greatest dimensions. All five bone margins are blunt in appearance, consistent with transection, and are inked as follows: Metatarsal 1-black, metatarsal 2-blue, metatarsal 3-yellow, metatarsal 4-red, metatarsal 5-orange. The specimen is submitted representatively as follows: . A1 advertising sales representative sections on lesion from dorsal/plantar aspect of toe 3 A2 fragmented bone margin of toe 4, following decalcification A3 fragmented bone margin of toe 5, following decalcification A4 longitudinal section through bone margin of first metatarsal, following decalcification A5 longitudinal section through bone margin of second metatarsal, following the calcification A6 longitudinal section through bone margin of third metatarsal, following decalcification A7 longitudinal section through bone margin of fourth metatarsal, following decalcification A8 longitudinal section through bone margin of fifth metatarsal, following decalcification. . Gross photographs are taken. (CAA; 12/01/2019) QAC/QAC 12/06/2019 1146 Local . 02 Pathologist provided ICD-10: I96, L08.9, M86.8X7 . 02 CPT . 921575, 718695 Specimen Comment: A courtesy copy of this report has been sent to [phone] Specimen Comment: [phone], Specimen Comment: Report sent to ,DR DOTSON / DR RITTER Performed at: [address], [place] [id number] MD Osman Meyer MD Phone: [phone] Performed at: [address] [place] [address] Shreya Wagner, [place], [place] [id number] MD Edmund Lambert MD Phone: [phone]
[2019-12-06 20:42] VITALS: BP 112/49
[2019-12-07 06:47] LABS: HEMATOCRIT 25.9 % (42.0-52.0); HEMOGLOBIN 8.6 gm/dL (14.0-18.0); MCH 26.5 pg (26.0-34.0); MCHC 33.3 g/dL (28.0-37.0); MCV 79.6 fL (80.0-100.0); MPV 7.4 fl. (7.2-11.1); RBC 3.26 mil/uL (4.50-6.00); RDW-CV 18.4 % (10.5-14.5); WBC 10.1 thou/uL (4.0-11.0)
[2019-12-07 06:59] LABS: CALCIUM 8.9 mg/dL (8.5-10.1); MAGNESIUM 1.8 mg/dL (1.8-2.4); POTASSIUM 4.5 mmol/L (3.5-5.1)
[2019-12-07 08:00] VITALS: BP 123/50
--- NOTE | 2019-12-07 13:29 | OP ---
[address] [address] OPERATIVE REPORT Name: TIKIMOISE A Room: [address] IN M.R.#: [id number] Admission: 11/23/19 Attend Phys: Robyn Cardozo Discharge: Date of : 52 Report #: [id number] THIS REPORT FOR: //name// cc: Meryl Chambers NP, Tammy NP ~ THIS REPORT FOR: //name// CC: Meryl Gloria DATE OF SERVICE: 11/29/2019 SURGEON: Obie Manuel DPM PREOPERATIVE DIAGNOSES: Osteomyelitis with gangrene, right fourth and fifth toes and distal metatarsals. POSTOPERATIVE DIAGNOSES: Osteomyelitis with gangrene, right fourth and fifth toes and distal metatarsals. PROCEDURE: Transmetatarsal amputation with primary closure, right foot. ANESTHESIA: MAC. INJECTABLES: A 30 mL of a 1:1 mixture 0.5% Marcaine plain and 1% lidocaine plain. ESTIMATED BLOOD LOSS: Roughly 2 mL. SUTURES: 2-0 nylon. SPECIMENS: Right distal first, second, third, fourth and fifth metatarsals with associated toes. CULTURES: 1. Bone, right 4th and 5th metatarsals, aerobic-anaerobic. 2. Soft tissue, right foot, aerobic-anaerobic. COMPLICATIONS: None. DESCRIPTION OF PROCEDURE: The patient was brought to the OR and placed on the table supine with induction of MAC anesthesia. A well-padded ankle tourniquet was placed. Local anesthetic block was given and the foot was exsanguinated with inflation of the tourniquet. A #10 scalpel was used to create a circumferential incision around the metatarsophalangeal joints 1 through 5 with disarticulation of the toes. Skin flap was then [place] [address] OPERATIVE REPORT Name: MOISE FAIRBANKS Room: [address]#: [id number] Admission: 11/23/19 Attend Phys: Robyn Cardozo Discharge: Date of : 52 Report #: [id number] plantar off the distal metatarsals and a fish-shaped incision was created at the medial and lateral aspect of the incision flap to facilitate flap formation. The distal metatarsals were transected with a sagittal saw and removed. The bone was hard with no signs of necrosis or infection at the transection site. A portion of bone from the fourth and fifth metatarsal heads was sent for aerobic and anaerobic cultures and associated soft tissue for the same soft tissue cultures. The toes and distal metatarsals were sent for gross pathology. The intraoperative wound was extensively debrided of all tenderness and infected material and the dorsal and plantar skin flaps were remodeled to facilitate closure. Electrocautery was utilized for intraoperative hemostasis and the wound was flushed with sterile saline with bacitracin irrigant. The plantar skin flap was mobilized dorsally and sutured in place with 2-0 nylon in simple interrupted fashion. Dog ears were trimmed and complete closure was obtained. The foot was cleansed and dried and dressed with a sterile bandage consisting of Aquacel Ag, fluffs, ABDs, Kerlix and Elder bandage. The tourniquet was deflated prior to bandage application and there is no pallor or cyanosis noted. The patient left the OR with no complications noted. <ELECTRONICALLY SIGNED> By: Obie Manuel DPM 12/07/19 1329 2148 2201Ddeepthi Manuel DPM /nt
--- NOTE | 2019-12-07 13:29 | CON ---
[address] [address] CONSULTATION Name: MOISE FAIRBANKS Room: [address] IN .R.#: [id number] Admission: 11/23/19 Attend Phys: Robyn Cardozo Discharge: Date of : 52 Report #: [id number] THIS REPORT FOR: //name// cc: Meryl Chambers NP, Tammy NP ~ THIS REPORT FOR: //name// CC: Meryl Gloria DATE OF SERVICE: 12/03/2019 CHIEF COMPLAINT: Postoperative right transmetatarsal amputation for osteomyelitis. Surgical cultures are pending with no growth thus far. Surgical pathology is also pending. He is on parenteral ceftriaxone with good tolerance, slight increase in creatinine. He denies pain to the extremity and has remained nonweightbearing. LABORATORY DATA: WBC 10.4, RBC 3.15, hemoglobin 8.2, hematocrit 25.3, platelets 325. BUN 42, creatinine 1.7, and glucose 85. PHYSICAL EXAMINATION: The incision is well coapted with some dry black eschar to the lateral incision roughly 3.0 cm along the incision. No underlying fluctuance or crepitation. The foot is warm, no pallor or cyanosis. Immediate robert-incisional capillary refill. He can flex and extend the ankle. No popliteal tenderness or adenopathy. Negative Homans and Walters sign to both lower extremities. Minimal inflammation to the distal incision with no atul cellulitis. IMPRESSION: Status post right transmetatarsal amputation for osteomyelitis, type 2 diabetes mellitus, and peripheral artery disease. PLAN: Incision was cleansed and redressed with sterile gauze, ABD, and Kerlix. Strict nonweightbearing to the extremity. I ordered a multi-podus PRAFO boot to maintain the foot at 90 degrees and offload the heel. <ELECTRONICALLY SIGNED> By: Obie Manuel DPM 12/07/19 1329 0936 [id number] Manuel DPM /nt
--- NOTE | 2019-12-07 13:29 | CON ---
[address] [address] CONSULTATION Name: MOISE FAIRBANKS Room: [address] IN [facility].#: [id number] Admission: 11/23/19 Attend Phys: Robyn Cardozo Discharge: Date of : 52 Report #: [id number] THIS REPORT FOR: //name// cc: Meryl Chambers NP, Tammy NP ~ THIS REPORT FOR: //name// CC: Meryl Gloria ADMISSION DIAGNOSIS: Gangrene with soft tissue infection, right toes. HISTORY OF PRESENT ILLNESS: The patient is a 69-year-old male admitted through the Emergency Department for gangrene to the right third, fourth and fifth toes. He had increased inflammation and erythema consistent with cellulitis and digital necrosis. He had right leg arterial bypass revascularization on 10/19/[address] Freire, and at this point, there are no further revascularization options. He is on parenteral Flagyl and Levaquin per Infectious Disease. He has type 2 diabetes mellitus with peripheral neuropathy, and peripheral arterial disease. Blood cultures pending x 2 with no growth. LABORATORY DATA: WBC 10.1, RBC 3.33, hemoglobin 8.9, hematocrit 27.4, platelets 395. BUN 22, creatinine 1.1, glucose 80, albumin 2.1. PHYSICAL EXAMINATION: There is gangrene to the right third, fourth and fifth toes, with the fourth and fifth toes entirely necrotic with black eschar and inflammation circumferentially to the metatarsophalangeal joints. The lateral aspect of the third toe has dry gangrene. The second toe appears uninvolved. The right hallux has had prior terminal Symes amputation with well-healed incision. His foot is cool to the touch without pallor or cyanosis. He has dopplerable DP/PT/AT pulses bilaterally. He has a healed left TMA. There is no crepitation to the left foot, some fluctuance along the dorsal metatarsophalangeal joints of the third, fourth, and fifth toes. IMPRESSION: Gangrene right digits, type 2 diabetes mellitus, peripheral artery disease. PLAN: I recommend amputation of the right second through fifth toes through a circumferential incision. The patient may require partial resection of some distal metatarsal heads to achieve wound closure. We will keep the patient n.p.o. past 8:00 a.m. with anticipated surgery late afternoon or early evening tomorrow. <ELECTRONICALLY SIGNED> By: Obie Manuel DPM 12/07/19 1329 40 [id number] Manuel DPM /lauren
--- NOTE | 2019-12-07 13:29 | CON ---
[address] [address] CONSULTATION Name: MOISE FAIRBANKS Room: [address] IN ..#: [id number] Admission: 11/23/19 Attend Phys: Robyn Cardozo Discharge: Date of : 52 Report #: [id number] THIS REPORT FOR: //name// cc: Meryl Chambers NP, Tammy NP ~ THIS REPORT FOR: //name// CC: Meryl Gloria DATE OF SERVICE: 11/30/2019 CHIEF COMPLAINT: Postoperative day #1 for right transmetatarsal amputation with primary closure. He is resting comfortably with good appetite, minimal discomfort. He has remained nonweightbearing since yesterday. Surgical bone and tissue cultures pending. Blood cultures negative x 2. He remains on parenteral levofloxacin and Flagyl. No new labs for review. PHYSICAL EXAMINATION: The incision is well coapted with no inflammation, cardinal signs of infection or signs of acute vascular embarrassment. Immediate capillary refill to the robert-incision. No fluctuance or crepitation. No expressible drainage from the incision. The foot is warm to the touch. There is a small dry eschar to the dorsal medial mid foot without inflammation. No lesions noted to the left lower extremity. Negative Homans' or Walters sign to either extremity, no popliteal adenopathy bilaterally. IMPRESSION: Status post right transmetatarsal amputation for osteomyelitis. PLAN: The incision was cleansed and dried. Photos were taken for chart in the extremity and the foot was redressed with Aquacel Ag, ABDs, Kerlix and Elder bandage. The patient to remain strictly nonweightbearing to the extremity. <ELECTRONICALLY SIGNED> By: Obie Manuel DPM 12/07/19 1329 1423 1433Ddeepthi Manuel DPM /nt
--- NOTE | 2019-12-07 13:29 | CON ---
[address] [address] CONSULTATION Name: MOISE FAIRBANKS Room: [address] IN .R.#: [id number] Admission: 11/23/19 Attend Phys: Robyn Cardozo Discharge: Date of : 52 Report #: [id number] THIS REPORT FOR: //name// cc: Meryl Chambers NP, Tammy NP ~ THIS REPORT FOR: //name// CC: Meryl Gloria DATE OF SERVICE: 12/05/2019 CHIEF COMPLAINT: Status post right transmetatarsal amputation with primary closure for osteomyelitis. He is on parenteral ceftriaxone, surgical pathology pending. Surgical tissue and bone cultures have no growth at 72 hours. He denies foot pain, good appetite and he feels well. He has remained nonweightbearing to the extremity. No new labs for review. PHYSICAL EXAMINATION: The incision is dry, clean and intact with no pallor, cyanosis inflammation or cardinal signs of infection. The foot is warm with dopplerable dorsalis pedis and posterior tibial pulse to the right lower extremity. No underlying fluctuance or crepitation. Some dry eschar along the portion of the lateral incision, but no dehiscence. No popliteal adenopathy, no calf tenderness bilaterally. IMPRESSION: Osteomyelitis with deep tissue infection, status post right transmetatarsal amputation, type 2 diabetes mellitus, and peripheral arterial disease. PLAN: The foot was cleansed and redressed with Aquacel Ag, Ramon, Tasia, and Elder. The patient to remain nonweightbearing to the extremity in a PRAFO boot. Awaiting possible nursing home placement. <ELECTRONICALLY SIGNED> By: Obie Manuel DPM 12/07/19 1329 0728 0752Ddeepthi Manuel DPM /nt
[2019-12-07 16:00] VITALS: BP 126/55
[2019-12-08 07:55] VITALS: BP 94/55
[2019-12-08] MEDS ORDERED: INSULIN AS100 UNIT/1 SUBQ (11:41)
[2019-12-08] MEDS ORDERED: LANTUS SUBQ (11:41)
[2019-12-08] MEDS ORDERED: SENOKOT-S TABL1 EACH PO (11:44)
[2019-12-08] MEDS ORDERED: FLAGYL500 M1 PO (13:18)
[2019-12-08] MEDS ORDERED: CEFTRIAXONE2 G1 IV (13:56)
[2019-12-08 13:59] VITALS: BP 94/55
[2019-12-08 15:06] VITALS: BP 94/55
== END 2019-12-08 17:00 | disposition home health service (06) | DRG 853 ==
LOC: M.ERS 15:47 → M.2W 16:39 → M.ORTHSURG 16:39 → M.TBA-ER 16:39 → M.2W 20:09 → M.ORTHSURG 11-25 16:00 → M.3W 12-03 15:08
PROVIDERS: Family Medicine; Internal Medicine; ADMIT Internal Medicine
PROC: 0Y6X0Z3 Detachment at Right 5th Toe, Low, Open Approach (ICD-10-PCS; principal; 2019-11-29)
PROC: 0Y6V0Z3 Detachment at Right 4th Toe, Low, Open Approach (ICD-10-PCS; principal; 2019-11-29)
DX: A41.9 Sepsis, unspecified organism (principal); E43 Unspecified severe protein-calorie malnutrition; L03.115 Cellulitis of right lower limb; E11.52 Type 2 diabetes mellitus with diabetic peripheral angiopathy with gangrene; I96 Gangrene, not elsewhere classified; M86.8X7 Other osteomyelitis, ankle and foot; E78.00 Pure hypercholesterolemia, unspecified; I25.10 Atherosclerotic heart disease of native coronary artery without angina pectoris; E78.5 Hyperlipidemia, unspecified; I10 Essential (primary) hypertension; Z79.899 Other long term (current) drug therapy; Z79.4 Long term (current) use of insulin; Z79.82 Long term (current) use of aspirin; Z87.891 Personal history of nicotine dependence; Z79.84 Long term (current) use of oral hypoglycemic drugs; Z23 Encounter for immunization; I25.2 Old myocardial infarction

== ENCOUNTER → 2019-12-21 | Outpatient (CLI) | payer MEDICARE, OTHER ==
[~2019-12-21] MED LIST changes: +CEFTRIAXONE2 G1 IV; +FLAGYL500 M1 PO; +INSULIN AS100 UNIT/1 SUBQ; +SENOKOT-S TABL1 EACH PO
== END ==
LOC: M.WC 13:09
DX: E11.621 Type 2 diabetes mellitus with foot ulcer (principal); L97.411 Non-pressure chronic ulcer of right heel and midfoot limited to breakdown of skin; I70.235 Atherosclerosis of native arteries of right leg with ulceration of other part of foot; L97.511 Non-pressure chronic ulcer of other part of right foot limited to breakdown of skin; I70.202 Unspecified atherosclerosis of native arteries of extremities, left leg; E11.51 Type 2 diabetes mellitus with diabetic peripheral angiopathy without gangrene; E11.42 Type 2 diabetes mellitus with diabetic polyneuropathy; E11.22 Type 2 diabetes mellitus with diabetic chronic kidney disease; N18.9 Chronic kidney disease, unspecified; E78.5 Hyperlipidemia, unspecified; G47.33 Obstructive sleep apnea (adult) (pediatric); Z79.4 Long term (current) use of insulin; Z79.82 Long term (current) use of aspirin; Z89.422 Acquired absence of other left toe(s)

== ENCOUNTER → 2019-12-28 | Outpatient (CLI) | payer MEDICARE, OTHER | LOC: M.WC 05:00 | DX: E11.621 Type 2 diabetes mellitus with foot ulcer (principal); L97.512 Non-pressure chronic ulcer of other part of right foot with fat layer exposed; L97.411 Non-pressure chronic ulcer of right heel and midfoot limited to breakdown of skin; E11.40 Type 2 diabetes mellitus with diabetic neuropathy, unspecified; E11.51 Type 2 diabetes mellitus with diabetic peripheral angiopathy without gangrene; E11.22 Type 2 diabetes mellitus with diabetic chronic kidney disease; N18.9 Chronic kidney disease, unspecified; E11.69 Type 2 diabetes mellitus with other specified complication; M86.171 Other acute osteomyelitis, right ankle and foot; E78.5 Hyperlipidemia, unspecified; G47.33 Obstructive sleep apnea (adult) (pediatric); Z79.82 Long term (current) use of aspirin; Z79.4 Long term (current) use of insulin; Z89.422 Acquired absence of other left toe(s) ==

== ENCOUNTER → 2020-01-04 | Outpatient (CLI) | payer MEDICARE, OTHER ==
--- NOTE | 2020-01-05 12:04 | CON ---
[address] [address] CONSULTATION Name: MOISE FAIRBANKS Room: [facility].#: [id number] Admission: 01/04/20 Attend Phys: Obie Manuel DPM Discharge: Date of : 52 Report #: [id number] THIS REPORT FOR: //name// cc: Meryl Chambers Tammy RNP ~ THIS REPORT FOR: //name// CC: Obie Chambers DATE OF SERVICE: 01/04/2020 INFECTIOUS DISEASE CONSULTATION ATTENDING PHYSICIAN: Obie Manuel D.P.M. HISTORY OF PRESENT ILLNESS: He is seen in the outpatient Wound Care Center at [facility]. The patient returns today in followup, having a diagnosis of multifocal chronic osteomyelitis involving his right foot. He is post transmetatarsal amputation. He only completed about 6 weeks of therapy, has been on ceftriaxone and oral metronidazole. Generally, he has been doing fairly well. He does have an incisional dehiscence that is open. He has got exposed bone with the first metatarsal site. On questioning, he denies significant amount of localizing pain or discomfort. He does have peripheral neuropathy nor does he have any systemic illness. ASSESSMENT AND PLAN: Chronic osteomyelitis. At this point, I think it is reasonable to discontinue the parenteral therapy. We will maintain the PICC line at least 1 week, start on oral antibiotics consisting of Augmentin likely the next couple of weeks. We would favor overall coverage of the bone if possible with tissue. Continue wound care as prescribed by Dr. Manuel. Optimize his nutritional status, offload his foot to improve likelihood of healing. There was a consideration of wound VAC, at this point was held off. <ELECTRONICALLY SIGNED> By: Sean Barth MD 01/05/20 1204 0859 [id number] Barth MD /nt
== END ==
LOC: M.WC 03:25
DX: T87.81 Dehiscence of amputation stump (principal); E11.621 Type 2 diabetes mellitus with foot ulcer; L97.516 Non-pressure chronic ulcer of other part of right foot with bone involvement without evidence of necrosis; E11.51 Type 2 diabetes mellitus with diabetic peripheral angiopathy without gangrene; E11.22 Type 2 diabetes mellitus with diabetic chronic kidney disease; N18.9 Chronic kidney disease, unspecified; E11.69 Type 2 diabetes mellitus with other specified complication; M86.171 Other acute osteomyelitis, right ankle and foot; E11.42 Type 2 diabetes mellitus with diabetic polyneuropathy; E78.5 Hyperlipidemia, unspecified; G47.33 Obstructive sleep apnea (adult) (pediatric); Z89.422 Acquired absence of other left toe(s); Y83.5 Amputation of limb(s) as the cause of abnormal reaction of the patient, or of later complication, without mention of misadventure at the time of the procedure

== ENCOUNTER 2020-01-11 18:35 | Emergency (ER) | payer MEDICARE, OTHER ==
[~2020-01-11] VITALS: Ht 175.3 cm; Wt 98.3 kg
[2020-01-11 20:19] VITALS: BP 130/61
== END 2020-01-11 20:07 | disposition home or self-care (01) ==
LOC: M.ERS 18:35
DX: L76.21 Postprocedural hemorrhage of skin and subcutaneous tissue following a dermatologic procedure (principal); I10 Essential (primary) hypertension; E11.40 Type 2 diabetes mellitus with diabetic neuropathy, unspecified; E78.00 Pure hypercholesterolemia, unspecified; Z89.411 Acquired absence of right great toe; Z88.1 Allergy status to other antibiotic agents

== ENCOUNTER 2020-01-11 21:37 | Emergency (ER) | payer MEDICARE, OTHER ==
[~2020-01-11] VITALS: Ht 175.3 cm; Wt 97.5 kg
[2020-01-11 22:54] VITALS: BP 144/78
== END 2020-01-11 22:54 | disposition home or self-care (01) ==
LOC: M.ERS 21:37
DX: L76.21 Postprocedural hemorrhage of skin and subcutaneous tissue following a dermatologic procedure (principal); I10 Essential (primary) hypertension; E11.40 Type 2 diabetes mellitus with diabetic neuropathy, unspecified; E78.00 Pure hypercholesterolemia, unspecified; Z88.1 Allergy status to other antibiotic agents

== ENCOUNTER → 2020-01-11 | Outpatient (CLI) | payer MEDICARE, OTHER ==
--- NOTE | 2020-01-12 11:49 | CON ---
[address] [address] CONSULTATION Name: FAIRBANKSMOISE Room: [facility] MeenaJanJakobJan#: [id number] Admission: 01/11/20 Attend Phys: Obie Manuel DPM Discharge: Date of : 52 Report #: [id number] THIS REPORT FOR: //name// cc: Meryl Chambers Tammy RNP ~ THIS REPORT FOR: //name// CC: Obie Chambers DATE OF SERVICE: 01/11/2020 INFECTIOUS DISEASE CONSULTATION FOLLOWUP REASON FOR EVALUATION: Follow up chronic osteomyelitis involving his right foot. He is post-transmetatarsal amputation. HISTORY OF PRESENT ILLNESS: The patient returns to the Wound Care Center for ongoing treatment. He has no particular complaints either locally in terms of the operative site nor systemically. Notes his appetite has been reasonably good. He has had no fevers. He is currently on therapy with Augmentin. He had completed a lengthy course of parenteral therapy, has been overall for the last week. He does have a PICC line in place as of now as well. PHYSICAL EXAMINATION: On examination, the site appears somewhat desiccated, gwub-ch-gxchzsml degree of inflammation. Margins of the open ulcer are blackened suggesting a superficial cutaneous infarct. On examination, he does have exposed first metatarsal bone. Tissue does not appear particularly healthy. ASSESSMENT: Chronic osteomyelitis. PLAN: 1. At this point, we would extend the systemic antibiotics. Discussed with Dr. Manuel. 2. We will maintain the PICC line at least 1 additional week. He is not having any particular adverse drug effects at this point. We will monitor clinically. Repeat lab next week as well. <ELECTRONICALLY SIGNED> By: Sean Barth MD 01/12/20 1149 0823 [id number] Barth MD /nt
== END ==
LOC: M.WC 03:18
DX: T86.821 Skin graft (allograft) (autograft) failure (principal); E11.621 Type 2 diabetes mellitus with foot ulcer; L97.516 Non-pressure chronic ulcer of other part of right foot with bone involvement without evidence of necrosis; E11.40 Type 2 diabetes mellitus with diabetic neuropathy, unspecified; E11.69 Type 2 diabetes mellitus with other specified complication; M86.171 Other acute osteomyelitis, right ankle and foot; E11.51 Type 2 diabetes mellitus with diabetic peripheral angiopathy without gangrene; E11.22 Type 2 diabetes mellitus with diabetic chronic kidney disease; N18.9 Chronic kidney disease, unspecified; E78.5 Hyperlipidemia, unspecified; G47.33 Obstructive sleep apnea (adult) (pediatric); Z89.422 Acquired absence of other left toe(s); Y83.2 Surgical operation with anastomosis, bypass or graft as the cause of abnormal reaction of the patient, or of later complication, without mention of misadventure at the time of the procedure

== ENCOUNTER → 2020-01-17 | Outpatient (CLI) | payer MEDICARE, OTHER | LOC: M.WC 03:08 | DX: E11.621 Type 2 diabetes mellitus with foot ulcer (principal); L97.516 Non-pressure chronic ulcer of other part of right foot with bone involvement without evidence of necrosis; E11.40 Type 2 diabetes mellitus with diabetic neuropathy, unspecified; E11.51 Type 2 diabetes mellitus with diabetic peripheral angiopathy without gangrene; E11.22 Type 2 diabetes mellitus with diabetic chronic kidney disease; N18.9 Chronic kidney disease, unspecified; E11.69 Type 2 diabetes mellitus with other specified complication; M86.171 Other acute osteomyelitis, right ankle and foot; E78.5 Hyperlipidemia, unspecified; G47.33 Obstructive sleep apnea (adult) (pediatric); Z89.422 Acquired absence of other left toe(s) ==

== ENCOUNTER → 2020-01-18 | Outpatient (CLI) | payer MEDICARE, OTHER ==
--- NOTE | 2020-01-19 11:26 | CON ---
[address] [address] CONSULTATION Name: MOIES FAIRBANKS Room: [facility] Mariajose.#: [id number] Admission: 01/18/20 Attend Phys: Obie Manuel DPM Discharge: Date of : 52 Report #: [id number] THIS REPORT FOR: //name// cc: Meryl Chambers Tammy RNP ~ THIS REPORT FOR: //name// CC: Obie Chambers DATE OF SERVICE: 01/18/2020 INFECTIOUS DISEASE CONSULTATION FOLLOWUP ATTENDING PHYSICIAN: Dr. Obie Manuel. HISTORY OF PRESENT ILLNESS: He is here for followup involving chronic osteomyelitis involving his right foot. He is post-transmetatarsal amputation with residual large ulceration at the operative site. On evaluation, he is clinically stable. Denies any fevers or chills. Appetite has been good. There is hemodynamic significant amount of pain associated with the operative site. Visually, the wound appears to have a significant amount of slough. There is some infarcted cutaneous tissue at the margins with exposed bone involving the first metatarsal at the amputation site and it is a deep wide wound. Overall degree of inflammation is moderate and extends up to his leg with edema. He is currently taking Augmentin. He has extended course of parenteral therapy. He does have a PICC line in place at this point as well. ASSESSMENT AND PLAN: Chronic osteomyelitis. I think at this point, we would continue the Augmentin. We will maintain the PICC line until he sees Vascular Surgery next week, but significant reversibility to his situation is not clear. I am certainly worried that tissue perfusion may be inadequate, more expectantly for systemic illness. Check weekly labs as well. <ELECTRONICALLY SIGNED> By: Sean Barth MD 01/19/20 1126 0742 0819Sean Barth MD /nt
--- NOTE | 2020-01-19 14:17 | EKG ---
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1950 Requested By: Obie Manuel Order Number: [id number] Reading MD: Sumit Jim Measurements Intervals [place] Rate: 79 P: 69 [place]: 141 QRS: 48 QRSD: 87 T: 109 QT: 507 QTc: 582 Interpretive Statements Sinus rhythm Atrial premature complex Nonspecific T abnormalities, lateral leads Prolonged QT interval Compared to ECG 11/23/2019 17:37:09 atrial fibrillation no longer present Possible ischemia no longer present Electronically Signed On 01-19-2020 14:15:39 CDT by Sumit Jim [email or web address] <ELECTRONICALLY SIGNED> By: Sumit Jim MD, [facility] 01/19/20 1415 1523 1523 Sumit Jim MD, [facility] /EPI
== END ==
LOC: M.CRD 05:28 → M.WC 05:28
DX: T86.828 Other complications of skin graft (allograft) (autograft) (principal); E11.621 Type 2 diabetes mellitus with foot ulcer; L97.516 Non-pressure chronic ulcer of other part of right foot with bone involvement without evidence of necrosis; E11.69 Type 2 diabetes mellitus with other specified complication; M86.171 Other acute osteomyelitis, right ankle and foot; E11.51 Type 2 diabetes mellitus with diabetic peripheral angiopathy without gangrene; E11.22 Type 2 diabetes mellitus with diabetic chronic kidney disease; N18.9 Chronic kidney disease, unspecified; E11.42 Type 2 diabetes mellitus with diabetic polyneuropathy; E78.5 Hyperlipidemia, unspecified; G47.33 Obstructive sleep apnea (adult) (pediatric); Z89.422 Acquired absence of other left toe(s); Y83.2 Surgical operation with anastomosis, bypass or graft as the cause of abnormal reaction of the patient, or of later complication, without mention of misadventure at the time of the procedure

== ENCOUNTER → 2020-01-23 | Outpatient (CLI) | payer MEDICARE, OTHER | LOC: M.WC 01:38 | DX: E11.621 Type 2 diabetes mellitus with foot ulcer (principal); L97.511 Non-pressure chronic ulcer of other part of right foot limited to breakdown of skin; E11.40 Type 2 diabetes mellitus with diabetic neuropathy, unspecified; E11.51 Type 2 diabetes mellitus with diabetic peripheral angiopathy without gangrene; E11.69 Type 2 diabetes mellitus with other specified complication; M86.171 Other acute osteomyelitis, right ankle and foot; E11.22 Type 2 diabetes mellitus with diabetic chronic kidney disease; N18.9 Chronic kidney disease, unspecified; E78.5 Hyperlipidemia, unspecified; G47.33 Obstructive sleep apnea (adult) (pediatric); Z79.4 Long term (current) use of insulin; Z89.432 Acquired absence of left foot ==

== ENCOUNTER → 2020-01-25 | Outpatient (CLI) | payer MEDICARE, OTHER | LOC: M.WC 01-24 06:59 | DX: T87.89 Other complications of amputation stump (principal); E11.621 Type 2 diabetes mellitus with foot ulcer; L97.516 Non-pressure chronic ulcer of other part of right foot with bone involvement without evidence of necrosis; E11.40 Type 2 diabetes mellitus with diabetic neuropathy, unspecified; E11.69 Type 2 diabetes mellitus with other specified complication; M86.171 Other acute osteomyelitis, right ankle and foot; E11.51 Type 2 diabetes mellitus with diabetic peripheral angiopathy without gangrene; Y83.5 Amputation of limb(s) as the cause of abnormal reaction of the patient, or of later complication, without mention of misadventure at the time of the procedure; E78.5 Hyperlipidemia, unspecified; G47.33 Obstructive sleep apnea (adult) (pediatric); E11.22 Type 2 diabetes mellitus with diabetic chronic kidney disease; N18.9 Chronic kidney disease, unspecified ==

== ENCOUNTER → 2020-01-25 | Outpatient (CLI) | payer MEDICARE, OTHER | LOC: M.WC 02:42 | DX: T87.89 Other complications of amputation stump (principal); E11.621 Type 2 diabetes mellitus with foot ulcer; L97.516 Non-pressure chronic ulcer of other part of right foot with bone involvement without evidence of necrosis; E11.40 Type 2 diabetes mellitus with diabetic neuropathy, unspecified; E11.69 Type 2 diabetes mellitus with other specified complication; M86.171 Other acute osteomyelitis, right ankle and foot; E11.51 Type 2 diabetes mellitus with diabetic peripheral angiopathy without gangrene; E11.22 Type 2 diabetes mellitus with diabetic chronic kidney disease; N18.9 Chronic kidney disease, unspecified; E78.5 Hyperlipidemia, unspecified; G47.33 Obstructive sleep apnea (adult) (pediatric); Y83.5 Amputation of limb(s) as the cause of abnormal reaction of the patient, or of later complication, without mention of misadventure at the time of the procedure ==

== ENCOUNTER → 2020-01-27 | Outpatient (CLI) | payer MEDICARE, OTHER | LOC: M.WC 03:54 | DX: E11.621 Type 2 diabetes mellitus with foot ulcer (principal); L97.511 Non-pressure chronic ulcer of other part of right foot limited to breakdown of skin; E11.69 Type 2 diabetes mellitus with other specified complication; M86.171 Other acute osteomyelitis, right ankle and foot; E11.51 Type 2 diabetes mellitus with diabetic peripheral angiopathy without gangrene; E11.40 Type 2 diabetes mellitus with diabetic neuropathy, unspecified; E78.5 Hyperlipidemia, unspecified; E11.22 Type 2 diabetes mellitus with diabetic chronic kidney disease; N18.9 Chronic kidney disease, unspecified; G47.33 Obstructive sleep apnea (adult) (pediatric) ==

== ENCOUNTER → 2020-01-30 | Outpatient (CLI) | payer MEDICARE, OTHER | LOC: M.WC 04:36 | DX: E11.621 Type 2 diabetes mellitus with foot ulcer (principal); L97.511 Non-pressure chronic ulcer of other part of right foot limited to breakdown of skin; E11.69 Type 2 diabetes mellitus with other specified complication; M86.171 Other acute osteomyelitis, right ankle and foot; E11.51 Type 2 diabetes mellitus with diabetic peripheral angiopathy without gangrene; E11.40 Type 2 diabetes mellitus with diabetic neuropathy, unspecified; E78.5 Hyperlipidemia, unspecified; E11.22 Type 2 diabetes mellitus with diabetic chronic kidney disease; N18.9 Chronic kidney disease, unspecified; G47.33 Obstructive sleep apnea (adult) (pediatric); Z89.432 Acquired absence of left foot ==

== ENCOUNTER → 2020-01-31 | Outpatient (CLI) | payer MEDICARE, OTHER | LOC: M.WC 04:56 | DX: E11.621 Type 2 diabetes mellitus with foot ulcer (principal); L97.511 Non-pressure chronic ulcer of other part of right foot limited to breakdown of skin; E11.69 Type 2 diabetes mellitus with other specified complication; M86.171 Other acute osteomyelitis, right ankle and foot; E11.40 Type 2 diabetes mellitus with diabetic neuropathy, unspecified; E11.51 Type 2 diabetes mellitus with diabetic peripheral angiopathy without gangrene; E11.22 Type 2 diabetes mellitus with diabetic chronic kidney disease; N18.9 Chronic kidney disease, unspecified; E78.5 Hyperlipidemia, unspecified; G47.33 Obstructive sleep apnea (adult) (pediatric) ==

== ENCOUNTER → 2020-02-01 | Outpatient (CLI) | payer MEDICARE, OTHER | LOC: M.WC 01:44 | DX: T81.89XD Other complications of procedures, not elsewhere classified, subsequent encounter (principal); E11.621 Type 2 diabetes mellitus with foot ulcer; L97.526 Non-pressure chronic ulcer of other part of left foot with bone involvement without evidence of necrosis; E11.69 Type 2 diabetes mellitus with other specified complication; M86.171 Other acute osteomyelitis, right ankle and foot; E11.51 Type 2 diabetes mellitus with diabetic peripheral angiopathy without gangrene; E11.40 Type 2 diabetes mellitus with diabetic neuropathy, unspecified; E11.22 Type 2 diabetes mellitus with diabetic chronic kidney disease; N18.9 Chronic kidney disease, unspecified; E78.5 Hyperlipidemia, unspecified; G47.33 Obstructive sleep apnea (adult) (pediatric); Z89.422 Acquired absence of other left toe(s); Y83.8 Other surgical procedures as the cause of abnormal reaction of the patient, or of later complication, without mention of misadventure at the time of the procedure ==

== ENCOUNTER → 2020-02-01 | Outpatient (CLI) | payer MEDICARE, OTHER ==
--- NOTE | 2020-02-01 16:50 | CON ---
[address] [address] CONSULTATION Name: FAIRBANKSMOISE A Room: [facility]#: [id number] Admission: 02/01/20 Attend Phys: Obie Manuel DPM Discharge: Date of : 52 Report #: [id number] THIS REPORT FOR: //name// cc: Meryl Chambers Tammy RNP ~ THIS REPORT FOR: //name// CC: Obie Chambers DATE OF SERVICE: 02/01/2020 INFECTIOUS DISEASE CONSULTATION ATTENDING PHYSICIAN: Obie Manuel DPM HISTORY OF PRESENT ILLNESS: The patient returns today in followup for chronic osteomyelitis involving his right foot. He has got a chronic ulceration at the site of previous transmetatarsal amputation with dehiscence of the site. He has got exposed first metatarsal. He has initiated hyperbaric oxygen therapy since our last visit. He has had culture with growth of bacteroides ovatus back in November, he has been on Augmentin after a fairly lengthy course of parenteral therapy. Seems to tolerate that well. He denies any significant difficulties in terms of adverse drug effects. He generally states he is not having systemic illness, no fevers or chills. Appetite has been good. No pulmonary or gastrointestinal related complaints. On evaluation, he does still have exposed bone, primarily the first metatarsal distal aspect. Overall, the wound appearance is somewhat improved with increased granulation tissue. There is still a moderate degree of inflammation noted and some hyperemia at the wound margins to go along with some edema. ASSESSMENT AND PLAN: Chronic osteomyelitis. At this point, we would extend the antibiotic therapy additional 2 weeks in addition to the hyperbaric oxygen wound care, which he is utilizing a wound VAC and try to get the bone covered. He will be seen daily so if there are any changes clinically, likely no fairly soon per staff at the Wound Care Center, try to optimize his nutritional status course wound care with offloading his critical as well. <ELECTRONICALLY SIGNED> By: Sean Barth MD 02/01/20 1650 1454 1605Jomingo Barth MD /nt
== END ==
LOC: M.WC 01:43
DX: T81.89XD Other complications of procedures, not elsewhere classified, subsequent encounter (principal); E11.621 Type 2 diabetes mellitus with foot ulcer; L97.516 Non-pressure chronic ulcer of other part of right foot with bone involvement without evidence of necrosis; E11.22 Type 2 diabetes mellitus with diabetic chronic kidney disease; N18.9 Chronic kidney disease, unspecified; E11.69 Type 2 diabetes mellitus with other specified complication; M86.171 Other acute osteomyelitis, right ankle and foot; E11.40 Type 2 diabetes mellitus with diabetic neuropathy, unspecified; E11.51 Type 2 diabetes mellitus with diabetic peripheral angiopathy without gangrene; E78.5 Hyperlipidemia, unspecified; G47.33 Obstructive sleep apnea (adult) (pediatric); Z89.422 Acquired absence of other left toe(s); Y83.8 Other surgical procedures as the cause of abnormal reaction of the patient, or of later complication, without mention of misadventure at the time of the procedure

== ENCOUNTER → 2020-02-02 | Outpatient (CLI) | payer MEDICARE, OTHER | LOC: M.WC 04:09 | DX: E11.621 Type 2 diabetes mellitus with foot ulcer (principal); L97.511 Non-pressure chronic ulcer of other part of right foot limited to breakdown of skin; E11.40 Type 2 diabetes mellitus with diabetic neuropathy, unspecified; E11.69 Type 2 diabetes mellitus with other specified complication; M86.171 Other acute osteomyelitis, right ankle and foot; E11.51 Type 2 diabetes mellitus with diabetic peripheral angiopathy without gangrene; E78.5 Hyperlipidemia, unspecified; E11.22 Type 2 diabetes mellitus with diabetic chronic kidney disease; N18.9 Chronic kidney disease, unspecified; G47.33 Obstructive sleep apnea (adult) (pediatric); Z89.422 Acquired absence of other left toe(s) ==

== ENCOUNTER → 2020-02-03 | Outpatient (CLI) | payer MEDICARE, OTHER | LOC: M.WC 05:07 | DX: E11.621 Type 2 diabetes mellitus with foot ulcer (principal); L97.511 Non-pressure chronic ulcer of other part of right foot limited to breakdown of skin; E11.69 Type 2 diabetes mellitus with other specified complication; M86.171 Other acute osteomyelitis, right ankle and foot; E11.40 Type 2 diabetes mellitus with diabetic neuropathy, unspecified; E11.51 Type 2 diabetes mellitus with diabetic peripheral angiopathy without gangrene; E11.22 Type 2 diabetes mellitus with diabetic chronic kidney disease; N18.9 Chronic kidney disease, unspecified; E78.5 Hyperlipidemia, unspecified; G47.33 Obstructive sleep apnea (adult) (pediatric); Z89.422 Acquired absence of other left toe(s) ==

== ENCOUNTER → 2020-02-07 | Outpatient (CLI) | payer MEDICARE, OTHER | LOC: M.WC 04:17 | DX: E11.621 Type 2 diabetes mellitus with foot ulcer (principal); L97.516 Non-pressure chronic ulcer of other part of right foot with bone involvement without evidence of necrosis; E11.22 Type 2 diabetes mellitus with diabetic chronic kidney disease; N18.9 Chronic kidney disease, unspecified; E11.69 Type 2 diabetes mellitus with other specified complication; M86.171 Other acute osteomyelitis, right ankle and foot; E11.42 Type 2 diabetes mellitus with diabetic polyneuropathy; E11.51 Type 2 diabetes mellitus with diabetic peripheral angiopathy without gangrene; E78.5 Hyperlipidemia, unspecified; G47.33 Obstructive sleep apnea (adult) (pediatric); Z89.422 Acquired absence of other left toe(s) ==

== ENCOUNTER → 2020-02-08 | Outpatient (CLI) | payer MEDICARE, OTHER | LOC: M.WC 04:11 | DX: E11.621 Type 2 diabetes mellitus with foot ulcer (principal); L97.511 Non-pressure chronic ulcer of other part of right foot limited to breakdown of skin; E11.69 Type 2 diabetes mellitus with other specified complication; M86.171 Other acute osteomyelitis, right ankle and foot; E11.51 Type 2 diabetes mellitus with diabetic peripheral angiopathy without gangrene; E11.40 Type 2 diabetes mellitus with diabetic neuropathy, unspecified; E11.22 Type 2 diabetes mellitus with diabetic chronic kidney disease; N18.9 Chronic kidney disease, unspecified; E78.5 Hyperlipidemia, unspecified; G47.33 Obstructive sleep apnea (adult) (pediatric); Z79.4 Long term (current) use of insulin; Z79.82 Long term (current) use of aspirin ==

== ENCOUNTER → 2020-02-09 | Outpatient (CLI) | payer MEDICARE, OTHER | LOC: M.WC 04:27 | DX: E11.621 Type 2 diabetes mellitus with foot ulcer (principal); L97.511 Non-pressure chronic ulcer of other part of right foot limited to breakdown of skin; E11.69 Type 2 diabetes mellitus with other specified complication; M86.171 Other acute osteomyelitis, right ankle and foot; E11.51 Type 2 diabetes mellitus with diabetic peripheral angiopathy without gangrene; E11.40 Type 2 diabetes mellitus with diabetic neuropathy, unspecified; E78.5 Hyperlipidemia, unspecified; E11.22 Type 2 diabetes mellitus with diabetic chronic kidney disease; N18.9 Chronic kidney disease, unspecified; G47.33 Obstructive sleep apnea (adult) (pediatric); Z89.432 Acquired absence of left foot ==

== ENCOUNTER → 2020-02-13 | Outpatient (CLI) | payer MEDICARE, OTHER | LOC: M.WC 02:20 | DX: E11.621 Type 2 diabetes mellitus with foot ulcer (principal); L97.511 Non-pressure chronic ulcer of other part of right foot limited to breakdown of skin; E11.69 Type 2 diabetes mellitus with other specified complication; M86.171 Other acute osteomyelitis, right ankle and foot; E11.40 Type 2 diabetes mellitus with diabetic neuropathy, unspecified; E11.51 Type 2 diabetes mellitus with diabetic peripheral angiopathy without gangrene; E11.22 Type 2 diabetes mellitus with diabetic chronic kidney disease; N18.9 Chronic kidney disease, unspecified; E78.5 Hyperlipidemia, unspecified; G47.33 Obstructive sleep apnea (adult) (pediatric); Z89.432 Acquired absence of left foot ==

== ENCOUNTER → 2020-02-14 | Outpatient (CLI) | payer MEDICARE, OTHER | LOC: M.WC 04:50 | DX: E11.621 Type 2 diabetes mellitus with foot ulcer (principal); L97.511 Non-pressure chronic ulcer of other part of right foot limited to breakdown of skin; E11.69 Type 2 diabetes mellitus with other specified complication; M86.171 Other acute osteomyelitis, right ankle and foot; E11.51 Type 2 diabetes mellitus with diabetic peripheral angiopathy without gangrene; E11.40 Type 2 diabetes mellitus with diabetic neuropathy, unspecified; E11.22 Type 2 diabetes mellitus with diabetic chronic kidney disease; N18.9 Chronic kidney disease, unspecified; E78.5 Hyperlipidemia, unspecified; G47.33 Obstructive sleep apnea (adult) (pediatric); Z89.422 Acquired absence of other left toe(s) ==

== ENCOUNTER → 2020-02-15 | Outpatient (CLI) | payer MEDICARE, OTHER ==
--- NOTE | 2020-02-16 11:29 | CON ---
[address] [address] CONSULTATION Name: FAIRBANKSMOISE Room: [facility] Mariajose.#: [id number] Admission: 02/15/20 Attend Phys: Obie Manuel DPM Discharge: Date of : 52 Report #: [id number] THIS REPORT FOR: //name// cc: Meryl Chambers Tammy RNP ~ THIS REPORT FOR: //name// CC: Obie Chambers DATE OF SERVICE: 02/15/2020 INFECTIOUS DISEASE CONSULTATION ATTENDING PHYSICIAN: Dr. Obie Manuel. HISTORY OF PRESENT ILLNESS: The patient returns today in followup for ongoing treatment for osteomyelitis involving his right foot. He has had transmetatarsal amputation with dehiscence of the transverse-oriented wound. He does have exposed bone involving the distal tip of the first metatarsal. He is undergoing aggressive wound care with wound VAC. He has been on therapy with Augmentin for a number of weeks and he has initiated therapy with hyperbaric oxygen. On questioning, he denies any particular complaints. No fevers. Appetite has been good. No pulmonary or gastrointestinal related complaints. PHYSICAL EXAMINATION: On examination, there is still exposed bone that of the partial osteoectomy involving the first metatarsal bone. Overall degree of inflammation is decreased. There is no particular odor. ASSESSMENT AND PLAN: Chronic osteomyelitis. At this point, we would extend the antibiotics ____ Augmentin. Dr. Manuel deferred any debridement due to concern about possible excess bleeding. We will continue wound VAC and HBO. We will see him in followup in 2 weeks. <ELECTRONICALLY SIGNED> By: Sean Barth MD 02/16/20 1129 1538 [id number] Barth MD /nt
== END ==
LOC: M.WC 13:59
DX: E11.621 Type 2 diabetes mellitus with foot ulcer (principal); L97.516 Non-pressure chronic ulcer of other part of right foot with bone involvement without evidence of necrosis; E11.40 Type 2 diabetes mellitus with diabetic neuropathy, unspecified; E11.51 Type 2 diabetes mellitus with diabetic peripheral angiopathy without gangrene; E11.69 Type 2 diabetes mellitus with other specified complication; M86.171 Other acute osteomyelitis, right ankle and foot; E11.22 Type 2 diabetes mellitus with diabetic chronic kidney disease; N18.9 Chronic kidney disease, unspecified; E78.5 Hyperlipidemia, unspecified; G47.33 Obstructive sleep apnea (adult) (pediatric)

== ENCOUNTER → 2020-02-15 | Outpatient (CLI) | payer MEDICARE, OTHER | LOC: M.WC 04:44 | DX: E11.621 Type 2 diabetes mellitus with foot ulcer (principal); L97.511 Non-pressure chronic ulcer of other part of right foot limited to breakdown of skin; E11.40 Type 2 diabetes mellitus with diabetic neuropathy, unspecified; E11.51 Type 2 diabetes mellitus with diabetic peripheral angiopathy without gangrene; E11.69 Type 2 diabetes mellitus with other specified complication; M86.171 Other acute osteomyelitis, right ankle and foot; E11.22 Type 2 diabetes mellitus with diabetic chronic kidney disease; N18.9 Chronic kidney disease, unspecified; E78.5 Hyperlipidemia, unspecified; G47.33 Obstructive sleep apnea (adult) (pediatric); Z89.422 Acquired absence of other left toe(s) ==

== ENCOUNTER → 2020-02-16 | Outpatient (CLI) | payer MEDICARE, OTHER | LOC: M.WC 03:54 | DX: E11.621 Type 2 diabetes mellitus with foot ulcer (principal); L97.511 Non-pressure chronic ulcer of other part of right foot limited to breakdown of skin; E11.69 Type 2 diabetes mellitus with other specified complication; M86.171 Other acute osteomyelitis, right ankle and foot; E11.51 Type 2 diabetes mellitus with diabetic peripheral angiopathy without gangrene; E11.40 Type 2 diabetes mellitus with diabetic neuropathy, unspecified; E11.22 Type 2 diabetes mellitus with diabetic chronic kidney disease; N18.9 Chronic kidney disease, unspecified; E78.5 Hyperlipidemia, unspecified; G47.33 Obstructive sleep apnea (adult) (pediatric); Z89.422 Acquired absence of other left toe(s) ==

== ENCOUNTER → 2020-02-17 | Outpatient (CLI) | payer MEDICARE, OTHER | LOC: M.WC 05:26 | DX: E11.621 Type 2 diabetes mellitus with foot ulcer (principal); L97.511 Non-pressure chronic ulcer of other part of right foot limited to breakdown of skin; E11.40 Type 2 diabetes mellitus with diabetic neuropathy, unspecified; E11.51 Type 2 diabetes mellitus with diabetic peripheral angiopathy without gangrene; E11.69 Type 2 diabetes mellitus with other specified complication; M86.171 Other acute osteomyelitis, right ankle and foot; E78.5 Hyperlipidemia, unspecified; E11.22 Type 2 diabetes mellitus with diabetic chronic kidney disease; N18.9 Chronic kidney disease, unspecified; G47.33 Obstructive sleep apnea (adult) (pediatric) ==

== ENCOUNTER → 2020-02-20 | Outpatient (CLI) | payer MEDICARE, OTHER | LOC: M.WC 03:31 | PROVIDERS: ATTEND Surgery | DX: E11.621 Type 2 diabetes mellitus with foot ulcer (principal); L97.511 Non-pressure chronic ulcer of other part of right foot limited to breakdown of skin; E11.40 Type 2 diabetes mellitus with diabetic neuropathy, unspecified; E11.69 Type 2 diabetes mellitus with other specified complication; M86.171 Other acute osteomyelitis, right ankle and foot; E11.51 Type 2 diabetes mellitus with diabetic peripheral angiopathy without gangrene; E11.22 Type 2 diabetes mellitus with diabetic chronic kidney disease; N18.9 Chronic kidney disease, unspecified; E78.5 Hyperlipidemia, unspecified; G47.33 Obstructive sleep apnea (adult) (pediatric); Z89.432 Acquired absence of left foot ==

== ENCOUNTER → 2020-02-21 | Outpatient (CLI) | payer MEDICARE, OTHER | LOC: M.WC 04:27 | PROVIDERS: ATTEND Emergency Medicine Undersea and Hyperbaric Medicine | DX: E11.621 Type 2 diabetes mellitus with foot ulcer (principal); L97.516 Non-pressure chronic ulcer of other part of right foot with bone involvement without evidence of necrosis; E11.69 Type 2 diabetes mellitus with other specified complication; M86.171 Other acute osteomyelitis, right ankle and foot; E11.51 Type 2 diabetes mellitus with diabetic peripheral angiopathy without gangrene; E11.42 Type 2 diabetes mellitus with diabetic polyneuropathy; E11.22 Type 2 diabetes mellitus with diabetic chronic kidney disease; N18.9 Chronic kidney disease, unspecified; E78.5 Hyperlipidemia, unspecified; G47.33 Obstructive sleep apnea (adult) (pediatric); Z89.422 Acquired absence of other left toe(s) ==

== ENCOUNTER → 2020-02-22 | Outpatient (CLI) | payer MEDICARE, OTHER | LOC: M.WC 04:22 | PROVIDERS: ATTEND Surgery | DX: E11.621 Type 2 diabetes mellitus with foot ulcer (principal); L97.516 Non-pressure chronic ulcer of other part of right foot with bone involvement without evidence of necrosis; E11.69 Type 2 diabetes mellitus with other specified complication; M86.171 Other acute osteomyelitis, right ankle and foot; E11.40 Type 2 diabetes mellitus with diabetic neuropathy, unspecified; E11.51 Type 2 diabetes mellitus with diabetic peripheral angiopathy without gangrene; E11.22 Type 2 diabetes mellitus with diabetic chronic kidney disease; N18.9 Chronic kidney disease, unspecified; E78.5 Hyperlipidemia, unspecified; G47.33 Obstructive sleep apnea (adult) (pediatric); Z89.422 Acquired absence of other left toe(s) ==

== ENCOUNTER → 2020-02-23 | Outpatient (CLI) | payer MEDICARE, OTHER | LOC: M.WC 05:04 | PROVIDERS: ATTEND Family Medicine | DX: E11.621 Type 2 diabetes mellitus with foot ulcer (principal); L97.511 Non-pressure chronic ulcer of other part of right foot limited to breakdown of skin; E11.69 Type 2 diabetes mellitus with other specified complication; M86.171 Other acute osteomyelitis, right ankle and foot; E11.22 Type 2 diabetes mellitus with diabetic chronic kidney disease; N18.9 Chronic kidney disease, unspecified; E11.51 Type 2 diabetes mellitus with diabetic peripheral angiopathy without gangrene; E11.40 Type 2 diabetes mellitus with diabetic neuropathy, unspecified; E78.5 Hyperlipidemia, unspecified; G47.33 Obstructive sleep apnea (adult) (pediatric); Z89.422 Acquired absence of other left toe(s) ==

== ENCOUNTER → 2020-02-24 | Outpatient (CLI) | payer MEDICARE, OTHER | LOC: M.WC 05:14 | PROVIDERS: ATTEND Family Medicine | DX: T87.89 Other complications of amputation stump (principal); E11.621 Type 2 diabetes mellitus with foot ulcer; L97.511 Non-pressure chronic ulcer of other part of right foot limited to breakdown of skin; E11.69 Type 2 diabetes mellitus with other specified complication; M86.171 Other acute osteomyelitis, right ankle and foot; E11.51 Type 2 diabetes mellitus with diabetic peripheral angiopathy without gangrene; E11.40 Type 2 diabetes mellitus with diabetic neuropathy, unspecified; E78.5 Hyperlipidemia, unspecified; E11.22 Type 2 diabetes mellitus with diabetic chronic kidney disease; N18.9 Chronic kidney disease, unspecified; G47.33 Obstructive sleep apnea (adult) (pediatric); Z89.432 Acquired absence of left foot; Y83.5 Amputation of limb(s) as the cause of abnormal reaction of the patient, or of later complication, without mention of misadventure at the time of the procedure ==

== ENCOUNTER → 2020-02-27 | Outpatient (CLI) | payer MEDICARE, OTHER | LOC: M.WC 02:33 | PROVIDERS: ATTEND Surgery | DX: E11.621 Type 2 diabetes mellitus with foot ulcer (principal); L97.511 Non-pressure chronic ulcer of other part of right foot limited to breakdown of skin; E11.40 Type 2 diabetes mellitus with diabetic neuropathy, unspecified; E11.69 Type 2 diabetes mellitus with other specified complication; M86.171 Other acute osteomyelitis, right ankle and foot; E11.22 Type 2 diabetes mellitus with diabetic chronic kidney disease; N18.9 Chronic kidney disease, unspecified; E11.51 Type 2 diabetes mellitus with diabetic peripheral angiopathy without gangrene; E78.5 Hyperlipidemia, unspecified; G47.33 Obstructive sleep apnea (adult) (pediatric); Z89.422 Acquired absence of other left toe(s) ==

== ENCOUNTER → 2020-02-28 | Outpatient (CLI) | payer MEDICARE, OTHER | LOC: M.WC 03:53 | PROVIDERS: ATTEND Emergency Medicine Undersea and Hyperbaric Medicine | DX: E11.621 Type 2 diabetes mellitus with foot ulcer (principal); L97.511 Non-pressure chronic ulcer of other part of right foot limited to breakdown of skin; E11.69 Type 2 diabetes mellitus with other specified complication; M86.171 Other acute osteomyelitis, right ankle and foot; E11.40 Type 2 diabetes mellitus with diabetic neuropathy, unspecified; E11.51 Type 2 diabetes mellitus with diabetic peripheral angiopathy without gangrene; E11.22 Type 2 diabetes mellitus with diabetic chronic kidney disease; N18.9 Chronic kidney disease, unspecified; E78.5 Hyperlipidemia, unspecified; G47.33 Obstructive sleep apnea (adult) (pediatric); Z89.422 Acquired absence of other left toe(s) ==

== ENCOUNTER → 2020-02-29 | Outpatient (CLI) | payer MEDICARE, OTHER ==
--- NOTE | 2020-03-01 11:46 | CON ---
[address] [address] CONSULTATION Name: FAIRBANKSMOISE A Room: [facility]#: [id number] Admission: 02/29/20 Attend Phys: Obie Manuel DPM Discharge: Date of : 52 Report #: [id number] THIS REPORT FOR: //name// cc: Meryl Chambers Tammy RNP ~ THIS REPORT FOR: //name// CC: Obie Chambers DATE OF SERVICE: 02/29/2020 INFECTIOUS DISEASE CONSULTATION AND FOLLOWUP NOTE ATTENDING PHYSICIAN: Obie Manuel DPM HISTORY OF PRESENT ILLNESS: He is seen in the outpatient Wound Care Center at [place]. The patient returns for followup on transmetatarsal amputation due to multifocal osteomyelitis involving the right foot. He is several weeks post surgery. Postop course was complicated by wound dehiscence. He has been undergoing multimodal therapy including hyperbaric oxygen. He is #27 of a planned 40. He is also on systemic antibiotics. Initially, he received parenteral and now has been on Augmentin for the last few weeks. Generally, he has been doing well. Denies any systemic illness, no fevers or chills. Appetite has been good. No localizing signs or symptoms. On evaluation, the wound overall has improved. There is increased granulation tissue. There is very little debris or necrotic material. The one issue is he does have exposed bone at the site of the first metatarsal. Dr. Manuel did debride the bone. It was quite hard, trying to shave down even with the surface of the base of the wound. ASSESSMENT AND PLAN: Chronic osteomyelitis. At this point, we would extend the Augmentin to favor having tissue cover the bone before backing off too much. He will be seen on a regular basis with the hyperbaric oxygen at least additional 3 weeks. We will see him back in 2 weeks and reevaluate. Repeat some labs as well. <ELECTRONICALLY SIGNED> By: Sean Barth MD 03/01/20 1146 0933 1041Josevannessa Barth MD /nt
== END ==
LOC: M.WC 04:50
PROVIDERS: ATTEND Podiatrist Foot & Ankle Surgery
DX: T87.89 Other complications of amputation stump (principal); E11.621 Type 2 diabetes mellitus with foot ulcer; L97.516 Non-pressure chronic ulcer of other part of right foot with bone involvement without evidence of necrosis; E11.40 Type 2 diabetes mellitus with diabetic neuropathy, unspecified; E11.69 Type 2 diabetes mellitus with other specified complication; M86.171 Other acute osteomyelitis, right ankle and foot; E11.51 Type 2 diabetes mellitus with diabetic peripheral angiopathy without gangrene; E11.22 Type 2 diabetes mellitus with diabetic chronic kidney disease; N18.9 Chronic kidney disease, unspecified; E78.5 Hyperlipidemia, unspecified; G47.33 Obstructive sleep apnea (adult) (pediatric); Z89.432 Acquired absence of left foot; Y83.5 Amputation of limb(s) as the cause of abnormal reaction of the patient, or of later complication, without mention of misadventure at the time of the procedure

== ENCOUNTER → 2020-03-01 | Outpatient (CLI) | payer MEDICARE, OTHER | LOC: M.WC 08:00 | PROVIDERS: ATTEND Family Medicine | DX: E11.621 Type 2 diabetes mellitus with foot ulcer (principal); L97.511 Non-pressure chronic ulcer of other part of right foot limited to breakdown of skin; E11.69 Type 2 diabetes mellitus with other specified complication; M86.171 Other acute osteomyelitis, right ankle and foot; E11.51 Type 2 diabetes mellitus with diabetic peripheral angiopathy without gangrene; E11.40 Type 2 diabetes mellitus with diabetic neuropathy, unspecified; E11.22 Type 2 diabetes mellitus with diabetic chronic kidney disease; N18.9 Chronic kidney disease, unspecified; E78.5 Hyperlipidemia, unspecified; G47.33 Obstructive sleep apnea (adult) (pediatric); Z89.422 Acquired absence of other left toe(s) ==

== ENCOUNTER → 2020-03-02 | Outpatient (CLI) | payer MEDICARE, OTHER | LOC: M.WC 01:06 | PROVIDERS: ATTEND Family Medicine | DX: E11.621 Type 2 diabetes mellitus with foot ulcer (principal); L97.511 Non-pressure chronic ulcer of other part of right foot limited to breakdown of skin; E11.69 Type 2 diabetes mellitus with other specified complication; M86.171 Other acute osteomyelitis, right ankle and foot; E11.22 Type 2 diabetes mellitus with diabetic chronic kidney disease; N18.9 Chronic kidney disease, unspecified; E11.40 Type 2 diabetes mellitus with diabetic neuropathy, unspecified; E11.51 Type 2 diabetes mellitus with diabetic peripheral angiopathy without gangrene; E78.5 Hyperlipidemia, unspecified; G47.33 Obstructive sleep apnea (adult) (pediatric); Z89.432 Acquired absence of left foot ==

== ENCOUNTER → 2020-03-05 | Outpatient (CLI) | payer MEDICARE, OTHER | LOC: M.WC 04:20 | PROVIDERS: ATTEND Surgery | DX: E11.621 Type 2 diabetes mellitus with foot ulcer (principal); L97.516 Non-pressure chronic ulcer of other part of right foot with bone involvement without evidence of necrosis; E11.69 Type 2 diabetes mellitus with other specified complication; M86.171 Other acute osteomyelitis, right ankle and foot; E11.51 Type 2 diabetes mellitus with diabetic peripheral angiopathy without gangrene; E11.40 Type 2 diabetes mellitus with diabetic neuropathy, unspecified; E78.5 Hyperlipidemia, unspecified; E11.22 Type 2 diabetes mellitus with diabetic chronic kidney disease; N18.9 Chronic kidney disease, unspecified; G47.33 Obstructive sleep apnea (adult) (pediatric) ==

== ENCOUNTER → 2020-03-06 | Outpatient (CLI) | payer MEDICARE, OTHER | LOC: M.WC 05:02 | PROVIDERS: ATTEND Emergency Medicine Undersea and Hyperbaric Medicine | DX: E11.621 Type 2 diabetes mellitus with foot ulcer (principal); L97.516 Non-pressure chronic ulcer of other part of right foot with bone involvement without evidence of necrosis; E11.51 Type 2 diabetes mellitus with diabetic peripheral angiopathy without gangrene; E11.22 Type 2 diabetes mellitus with diabetic chronic kidney disease; N18.9 Chronic kidney disease, unspecified; E11.69 Type 2 diabetes mellitus with other specified complication; M86.171 Other acute osteomyelitis, right ankle and foot; E11.42 Type 2 diabetes mellitus with diabetic polyneuropathy; E78.5 Hyperlipidemia, unspecified; G47.33 Obstructive sleep apnea (adult) (pediatric); Z89.422 Acquired absence of other left toe(s) ==

== ENCOUNTER → 2020-03-07 | Outpatient (CLI) | payer MEDICARE, OTHER | LOC: M.WC 03:19 | PROVIDERS: ATTEND Surgery | DX: E11.621 Type 2 diabetes mellitus with foot ulcer (principal); L97.511 Non-pressure chronic ulcer of other part of right foot limited to breakdown of skin; E11.40 Type 2 diabetes mellitus with diabetic neuropathy, unspecified; E11.69 Type 2 diabetes mellitus with other specified complication; M86.171 Other acute osteomyelitis, right ankle and foot; E11.51 Type 2 diabetes mellitus with diabetic peripheral angiopathy without gangrene; E11.22 Type 2 diabetes mellitus with diabetic chronic kidney disease; N18.9 Chronic kidney disease, unspecified; E78.5 Hyperlipidemia, unspecified; G47.33 Obstructive sleep apnea (adult) (pediatric); Z89.422 Acquired absence of other left toe(s) ==

== ENCOUNTER → 2020-03-08 | Outpatient (CLI) | payer MEDICARE, OTHER | LOC: M.WC 08:00 | PROVIDERS: ATTEND Family Medicine | DX: T87.89 Other complications of amputation stump (principal); E11.621 Type 2 diabetes mellitus with foot ulcer; L97.816 Non-pressure chronic ulcer of other part of right lower leg with bone involvement without evidence of necrosis; E11.69 Type 2 diabetes mellitus with other specified complication; M86.171 Other acute osteomyelitis, right ankle and foot; E11.51 Type 2 diabetes mellitus with diabetic peripheral angiopathy without gangrene; E11.40 Type 2 diabetes mellitus with diabetic neuropathy, unspecified; E78.5 Hyperlipidemia, unspecified; E11.22 Type 2 diabetes mellitus with diabetic chronic kidney disease; N18.9 Chronic kidney disease, unspecified; G47.33 Obstructive sleep apnea (adult) (pediatric); Y83.5 Amputation of limb(s) as the cause of abnormal reaction of the patient, or of later complication, without mention of misadventure at the time of the procedure ==

== ENCOUNTER → 2020-03-09 | Outpatient (CLI) | payer MEDICARE, OTHER | LOC: M.WC 03:54 | PROVIDERS: ATTEND Family Medicine | DX: T87.89 Other complications of amputation stump (principal); E11.621 Type 2 diabetes mellitus with foot ulcer; L97.516 Non-pressure chronic ulcer of other part of right foot with bone involvement without evidence of necrosis; E11.69 Type 2 diabetes mellitus with other specified complication; M86.171 Other acute osteomyelitis, right ankle and foot; E11.51 Type 2 diabetes mellitus with diabetic peripheral angiopathy without gangrene; E11.40 Type 2 diabetes mellitus with diabetic neuropathy, unspecified; E78.5 Hyperlipidemia, unspecified; E11.22 Type 2 diabetes mellitus with diabetic chronic kidney disease; N18.9 Chronic kidney disease, unspecified; G47.33 Obstructive sleep apnea (adult) (pediatric); Y83.5 Amputation of limb(s) as the cause of abnormal reaction of the patient, or of later complication, without mention of misadventure at the time of the procedure ==

== ENCOUNTER → 2020-03-12 | Outpatient (CLI) | payer MEDICARE, OTHER | LOC: M.WC 06:25 | PROVIDERS: ATTEND Surgery | DX: E11.621 Type 2 diabetes mellitus with foot ulcer (principal); L97.511 Non-pressure chronic ulcer of other part of right foot limited to breakdown of skin; E11.69 Type 2 diabetes mellitus with other specified complication; M86.171 Other acute osteomyelitis, right ankle and foot; E11.40 Type 2 diabetes mellitus with diabetic neuropathy, unspecified; E11.51 Type 2 diabetes mellitus with diabetic peripheral angiopathy without gangrene; E11.22 Type 2 diabetes mellitus with diabetic chronic kidney disease; N18.9 Chronic kidney disease, unspecified; E78.5 Hyperlipidemia, unspecified; G47.33 Obstructive sleep apnea (adult) (pediatric); Z89.422 Acquired absence of other left toe(s) ==

== ENCOUNTER → 2020-03-13 | Outpatient (CLI) | payer MEDICARE, OTHER | LOC: M.WC 04:31 | PROVIDERS: ATTEND Emergency Medicine Undersea and Hyperbaric Medicine | DX: E11.621 Type 2 diabetes mellitus with foot ulcer (principal); L97.511 Non-pressure chronic ulcer of other part of right foot limited to breakdown of skin; E11.69 Type 2 diabetes mellitus with other specified complication; M86.171 Other acute osteomyelitis, right ankle and foot; E11.40 Type 2 diabetes mellitus with diabetic neuropathy, unspecified; E11.51 Type 2 diabetes mellitus with diabetic peripheral angiopathy without gangrene; E11.22 Type 2 diabetes mellitus with diabetic chronic kidney disease; N18.9 Chronic kidney disease, unspecified; E78.5 Hyperlipidemia, unspecified; G47.33 Obstructive sleep apnea (adult) (pediatric); Z89.422 Acquired absence of other left toe(s) ==

== ENCOUNTER → 2020-03-14 | Outpatient (CLI) | payer MEDICARE, OTHER ==
[2020-03-14 14:43] LABS: HEMOGLOBIN 11.8 gm/dL (14.0-18.0); MCH 26.8 pg (26.0-34.0); MCHC 32.8 g/dL (28.0-37.0); MCV 81.6 fL (80.0-100.0); MPV 7.2 fl. (7.2-11.1); RBC 4.41 mil/uL (4.50-6.00); RDW-CV 17.1 % (10.5-14.5); WBC 9.7 thou/uL (4.0-11.0)
[2020-03-14 15:13] LABS: CALCIUM 8.5 mg/dL (8.5-10.1); CREATININE 1.1 mg/dL (0.6-1.3); POTASSIUM 3.9 mmol/L (3.5-5.1)
[2020-03-14 15:18] LABS: ALBUMIN 2.6 g/dL (3.4-5.0); TOTAL BILIRUBIN 0.3 mg/dL (<0.1-1.0); TOTAL PROTEIN 6.2 g/dL (6.4-8.2)
--- NOTE | 2020-03-15 11:08 | CON ---
[address] [address] CONSULTATION Name: FAIRBANKSMOISE A Room: [facility]#: [id number] Admission: 03/14/20 Attend Phys: Obie Manuel DPM Discharge: Date of : 52 Report #: [id number] THIS REPORT FOR: //name// cc: Meryl Chambers Tammy RNP ~ THIS REPORT FOR: //name// CC: Obie Chambers DATE OF SERVICE: 03/14/2020 INFECTIOUS DISEASE CONSULTATION Outpatient followup seen in the wound care center at [place]. ATTENDING PHYSICIAN: Obie Manuel DPM HISTORY OF PRESENT ILLNESS: He is here for followup of chronic osteomyelitis involving his right forefoot. He is post-transmetatarsal amputation. He has been undergoing aggressive therapy with wound care as well as hyperbaric oxygen and he has been on no systemic antibiotics utilizing Augmentin for the last several weeks, prior to that was on parenteral therapy. Generally, he has been doing well. Denies any localizing or systemic illness. PHYSICAL EXAMINATION: On examination, there is still some exposed bone at the first metatarsal site. Otherwise, there is increased granulation tissue. Overall, dimensions of the wound have decreased. The superficial inflammation has continued to regress. ASSESSMENT AND PLAN: Chronic osteomyelitis. At this point, we would extend the antibiotics, still favor having the bone being covered in this setting. He is scheduled to undergo additional 7-8 hyperbaric oxygen therapy, so we should take him over to the next couple of weeks. We will see him back in 2 weeks' time and ideally be able to discontinue the antibiotics, finish up his wound care, continue to optimize his nutritional status. <ELECTRONICALLY SIGNED> By: Sean Barth MD 03/15/20 1108 0854 0940Sean Barth MD /nt
== END ==
LOC: M.WC 03:29
PROVIDERS: ATTEND Podiatrist Foot & Ankle Surgery
DX: E11.621 Type 2 diabetes mellitus with foot ulcer (principal); L97.516 Non-pressure chronic ulcer of other part of right foot with bone involvement without evidence of necrosis; E11.69 Type 2 diabetes mellitus with other specified complication; M86.171 Other acute osteomyelitis, right ankle and foot; E11.40 Type 2 diabetes mellitus with diabetic neuropathy, unspecified; E11.51 Type 2 diabetes mellitus with diabetic peripheral angiopathy without gangrene; E11.22 Type 2 diabetes mellitus with diabetic chronic kidney disease; N18.9 Chronic kidney disease, unspecified; E78.5 Hyperlipidemia, unspecified; G47.33 Obstructive sleep apnea (adult) (pediatric); Z89.422 Acquired absence of other left toe(s)

== ENCOUNTER → 2020-03-15 | Outpatient (CLI) | payer MEDICARE, OTHER | LOC: M.WC 04:11 | PROVIDERS: ATTEND Family Medicine | DX: E11.621 Type 2 diabetes mellitus with foot ulcer (principal); L97.511 Non-pressure chronic ulcer of other part of right foot limited to breakdown of skin; E11.69 Type 2 diabetes mellitus with other specified complication; M86.171 Other acute osteomyelitis, right ankle and foot; E11.40 Type 2 diabetes mellitus with diabetic neuropathy, unspecified; E11.51 Type 2 diabetes mellitus with diabetic peripheral angiopathy without gangrene; E11.22 Type 2 diabetes mellitus with diabetic chronic kidney disease; N18.9 Chronic kidney disease, unspecified; E78.5 Hyperlipidemia, unspecified; G47.33 Obstructive sleep apnea (adult) (pediatric); Z89.422 Acquired absence of other left toe(s) ==

== ENCOUNTER → 2020-03-19 | Outpatient (CLI) | payer MEDICARE, OTHER | LOC: M.WC 04:23 | PROVIDERS: ATTEND Surgery | DX: E11.621 Type 2 diabetes mellitus with foot ulcer (principal); L97.511 Non-pressure chronic ulcer of other part of right foot limited to breakdown of skin; E11.69 Type 2 diabetes mellitus with other specified complication; M86.171 Other acute osteomyelitis, right ankle and foot; E11.40 Type 2 diabetes mellitus with diabetic neuropathy, unspecified; E11.51 Type 2 diabetes mellitus with diabetic peripheral angiopathy without gangrene; E11.22 Type 2 diabetes mellitus with diabetic chronic kidney disease; N18.9 Chronic kidney disease, unspecified; E78.5 Hyperlipidemia, unspecified; G47.33 Obstructive sleep apnea (adult) (pediatric); Z89.422 Acquired absence of other left toe(s) ==

== ENCOUNTER → 2020-03-20 | Outpatient (CLI) | payer MEDICARE, OTHER | LOC: M.WC 04:06 | PROVIDERS: ATTEND Emergency Medicine Undersea and Hyperbaric Medicine | DX: E11.621 Type 2 diabetes mellitus with foot ulcer (principal); L97.516 Non-pressure chronic ulcer of other part of right foot with bone involvement without evidence of necrosis; E11.69 Type 2 diabetes mellitus with other specified complication; M86.171 Other acute osteomyelitis, right ankle and foot; E11.51 Type 2 diabetes mellitus with diabetic peripheral angiopathy without gangrene; E11.22 Type 2 diabetes mellitus with diabetic chronic kidney disease; N18.9 Chronic kidney disease, unspecified; E11.42 Type 2 diabetes mellitus with diabetic polyneuropathy; E78.5 Hyperlipidemia, unspecified; G47.33 Obstructive sleep apnea (adult) (pediatric); Z89.422 Acquired absence of other left toe(s) ==

== ENCOUNTER → 2020-03-21 | Outpatient (CLI) | payer MEDICARE, OTHER | LOC: M.WC 05:51 | PROVIDERS: ATTEND Surgery | DX: E11.621 Type 2 diabetes mellitus with foot ulcer (principal); L97.511 Non-pressure chronic ulcer of other part of right foot limited to breakdown of skin; E11.69 Type 2 diabetes mellitus with other specified complication; M86.171 Other acute osteomyelitis, right ankle and foot; E11.40 Type 2 diabetes mellitus with diabetic neuropathy, unspecified; E11.51 Type 2 diabetes mellitus with diabetic peripheral angiopathy without gangrene; E11.22 Type 2 diabetes mellitus with diabetic chronic kidney disease; N18.9 Chronic kidney disease, unspecified; E78.5 Hyperlipidemia, unspecified; G47.33 Obstructive sleep apnea (adult) (pediatric); Z89.422 Acquired absence of other left toe(s) ==

== ENCOUNTER → 2020-03-22 | Outpatient (CLI) | payer MEDICARE, OTHER | LOC: M.WC 04:22 | PROVIDERS: ATTEND Family Medicine | DX: E11.621 Type 2 diabetes mellitus with foot ulcer (principal); L97.511 Non-pressure chronic ulcer of other part of right foot limited to breakdown of skin; E11.69 Type 2 diabetes mellitus with other specified complication; M86.171 Other acute osteomyelitis, right ankle and foot; E11.40 Type 2 diabetes mellitus with diabetic neuropathy, unspecified; E11.51 Type 2 diabetes mellitus with diabetic peripheral angiopathy without gangrene; E11.22 Type 2 diabetes mellitus with diabetic chronic kidney disease; N18.9 Chronic kidney disease, unspecified; E78.5 Hyperlipidemia, unspecified; G47.33 Obstructive sleep apnea (adult) (pediatric); Z89.422 Acquired absence of other left toe(s) ==

== ENCOUNTER → 2020-03-23 | Outpatient (CLI) | payer MEDICARE, OTHER | LOC: M.WC 05:31 | PROVIDERS: ATTEND Family Medicine | DX: E11.621 Type 2 diabetes mellitus with foot ulcer (principal); L97.516 Non-pressure chronic ulcer of other part of right foot with bone involvement without evidence of necrosis; E11.69 Type 2 diabetes mellitus with other specified complication; M86.171 Other acute osteomyelitis, right ankle and foot; E11.51 Type 2 diabetes mellitus with diabetic peripheral angiopathy without gangrene; E11.40 Type 2 diabetes mellitus with diabetic neuropathy, unspecified; E78.5 Hyperlipidemia, unspecified; E11.22 Type 2 diabetes mellitus with diabetic chronic kidney disease; N18.9 Chronic kidney disease, unspecified; G47.33 Obstructive sleep apnea (adult) (pediatric); Z89.432 Acquired absence of left foot ==

== ENCOUNTER 2020-03-26 07:04 | Emergency (ER) | payer MEDICARE, OTHER ==
[~2020-03-26] VITALS: Ht 175.3 cm; Wt 100.0 kg
[2020-03-26 07:46] LABS: ABSOLUTE BASOPHILS 0.1 thou/uL (0.0-0.2); ABSOLUTE EOSINOPHILS 0.2 thou/uL (0.0-0.7); ABSOLUTE LYMPHOCYTES 1.9 thou/uL (0.8-5.3); ABSOLUTE MONOCYTES 1.4 thou/uL (0.0-1.2); ABSOLUTE NEUTROPHILS 16.1 thou/uL (1.6-8.1); BASOPHILS 0.5 %; EOSINOPHILS 0.9 %; HEMATOCRIT 36.9 % (42.0-52.0); HEMOGLOBIN 12.1 gm/dL (14.0-18.0); LYMPHOCYTES 9.5 %; MCH 26.8 pg (26.0-34.0); MCHC 32.8 g/dL (28.0-37.0); MCV 81.5 fL (80.0-100.0); MPV 7.8 fl. (7.2-11.1); NUCLEATED RBCS 0 /100WBC; PLATELET COUNT* 264 thou/uL (150-400); POLYS 82.1 %; RBC 4.53 mil/uL (4.50-6.00); RDW-CV 17.2 % (10.5-14.5); WBC 19.6 thou/uL (4.0-11.0)
[2020-03-26 07:54] LABS: APTT 27.9 Seconds (25.0-31.3); CALCIUM 8.5 mg/dL (8.5-10.1); CREATININE 1.2 mg/dL (0.6-1.3); POTASSIUM 3.8 mmol/L (3.5-5.1); PROTIME 10.5 Seconds (9.20-11.50)
[2020-03-26 08:01] LABS: ALBUMIN 2.9 g/dL (3.4-5.0); TOTAL BILIRUBIN 0.4 mg/dL (<0.1-1.0); TOTAL PROTEIN 7.1 g/dL (6.4-8.2)
--- NOTE | 2020-03-26 10:10 | EKG ---
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1950 Requested By: Alisson Sauceda Order Number: [id number] MD: Sumit Jim Measurements Intervals [place] Rate: 102 P: 66 MS: 141 QRS: 23 QRSD: 89 T: 90 QT: 332 QTc: 433 Interpretive Statements Fast sinus arrhythmia nonspecific t wave changes Low voltage, extremity and precordial leads Baseline wander in lead(s) II Compared to ECG 01/18/2020 15:23:06 Low QRS voltage now present Sinus rhythm no longer present Prolonged QT interval no longer present Electronically Signed On 03-26-2020 10:10:14 CDT by Sumit Jim [email or web address] <ELECTRONICALLY SIGNED> By: Sumit Jim MD, [facility] 03/26/20 1010 0709 0709 Sumit Jim MD, [facility] /EPI
[2020-03-26 11:52] VITALS: BP 147/59
== END 2020-03-26 11:55 | disposition short-term general hospital (02) ==
LOC: M.ERS 07:04
PROVIDERS: Personal Emergency Response Attendant
DX: S91.301A Unspecified open wound, right foot, initial encounter (principal); I25.119 Atherosclerotic heart disease of native coronary artery with unspecified angina pectoris; I10 Essential (primary) hypertension; E11.40 Type 2 diabetes mellitus with diabetic neuropathy, unspecified; E78.00 Pure hypercholesterolemia, unspecified; Z20.828 Contact with and (suspected) exposure to other viral communicable diseases; Z95.5 Presence of coronary angioplasty implant and graft; Z89.411 Acquired absence of right great toe; Z79.4 Long term (current) use of insulin; Z88.1 Allergy status to other antibiotic agents; X58.XXXA Exposure to other specified factors, initial encounter; Y93.89 Activity, other specified; Y92.89 Other specified places as the place of occurrence of the external cause; Y99.8 Other external cause status

== ENCOUNTER → 2020-03-28 | Outpatient (CLI) | payer MEDICARE, OTHER ==
--- NOTE | 2020-03-29 14:24 | CON ---
[address] [address] CONSULTATION Name: TIKIMOISE A Room: [facility] Mariajose.#: [id number] Admission: 03/28/20 Attend Phys: Obie Manuel DPM Discharge: Date of : 52 Report #: [id number] THIS REPORT FOR: //name// cc: Meryl Chambers Tammy RNP ~ THIS REPORT FOR: //name// CC: Obie Chambers DATE OF SERVICE: 03/28/2020 INFECTIOUS DISEASE CONSULTATION ATTENDING PHYSICIAN: Dr. Obie Manuel. HISTORY OF PRESENT ILLNESS: The patient returns today in followup, ongoing wound care, right foot previous transmetatarsal amputation showed considerable healing since the previous visit from the lateral aspect of the wound towards the middle. Overall, the appearance is much improved with increased granulation tissue. There is very little superficial inflammation at the margins. He does have bit of exposed bone, although it is now even with the surface. Dr. Manuel did further rongeur the bone and appeared to be viable. Ideally, ____ that the tissue will cover it. He generally feels well. Denies any systemic illness. He did note he was evaluated in the hospital overnight last week with chest pain. He was unaware of any definitive diagnosis. ASSESSMENT AND PLAN: Chronic osteomyelitis. We will continue the oral Augmentin 2 more weeks and ideally, it would be adequate. Continue wound care as prescribed by Dr. Manuel, offloading, optimize his nutritional status. We will be available by phone as needed. <ELECTRONICALLY SIGNED> By: Sean Barth MD 03/29/20 1424 0914 0922Sean Barth MD /nt
== END ==
LOC: M.WC 03:49
PROVIDERS: ATTEND Podiatrist Foot & Ankle Surgery
DX: T87.89 Other complications of amputation stump (principal); E11.621 Type 2 diabetes mellitus with foot ulcer; L97.516 Non-pressure chronic ulcer of other part of right foot with bone involvement without evidence of necrosis; E11.40 Type 2 diabetes mellitus with diabetic neuropathy, unspecified; E11.69 Type 2 diabetes mellitus with other specified complication; M86.171 Other acute osteomyelitis, right ankle and foot; E11.51 Type 2 diabetes mellitus with diabetic peripheral angiopathy without gangrene; E11.22 Type 2 diabetes mellitus with diabetic chronic kidney disease; N18.9 Chronic kidney disease, unspecified; E78.5 Hyperlipidemia, unspecified; G47.33 Obstructive sleep apnea (adult) (pediatric); Y83.5 Amputation of limb(s) as the cause of abnormal reaction of the patient, or of later complication, without mention of misadventure at the time of the procedure

== ENCOUNTER → 2020-04-04 | Outpatient (CLI) | payer MEDICARE, OTHER | LOC: M.WC 05:16 | PROVIDERS: ATTEND Podiatrist Foot & Ankle Surgery | DX: T87.89 Other complications of amputation stump (principal); E11.621 Type 2 diabetes mellitus with foot ulcer; L97.516 Non-pressure chronic ulcer of other part of right foot with bone involvement without evidence of necrosis; E11.51 Type 2 diabetes mellitus with diabetic peripheral angiopathy without gangrene; E11.69 Type 2 diabetes mellitus with other specified complication; M86.171 Other acute osteomyelitis, right ankle and foot; E11.22 Type 2 diabetes mellitus with diabetic chronic kidney disease; N18.9 Chronic kidney disease, unspecified; E11.42 Type 2 diabetes mellitus with diabetic polyneuropathy; E78.5 Hyperlipidemia, unspecified; G47.33 Obstructive sleep apnea (adult) (pediatric); Y83.5 Amputation of limb(s) as the cause of abnormal reaction of the patient, or of later complication, without mention of misadventure at the time of the procedure ==

== ENCOUNTER → 2020-04-11 | Outpatient (CLI) | payer MEDICARE, OTHER | LOC: M.WC 05:05 | PROVIDERS: ATTEND Podiatrist Foot & Ankle Surgery | DX: T87.89 Other complications of amputation stump (principal); E11.621 Type 2 diabetes mellitus with foot ulcer; L97.516 Non-pressure chronic ulcer of other part of right foot with bone involvement without evidence of necrosis; E11.69 Type 2 diabetes mellitus with other specified complication; M86.171 Other acute osteomyelitis, right ankle and foot; E11.40 Type 2 diabetes mellitus with diabetic neuropathy, unspecified; E11.51 Type 2 diabetes mellitus with diabetic peripheral angiopathy without gangrene; E11.22 Type 2 diabetes mellitus with diabetic chronic kidney disease; N18.9 Chronic kidney disease, unspecified; E78.5 Hyperlipidemia, unspecified; G47.33 Obstructive sleep apnea (adult) (pediatric); Y83.5 Amputation of limb(s) as the cause of abnormal reaction of the patient, or of later complication, without mention of misadventure at the time of the procedure ==

== ENCOUNTER 2020-04-24 12:56 | Emergency (ER) | payer MEDICARE, OTHER ==
[~2020-04-24] VITALS: Ht 175.3 cm; Wt 97.5 kg
[2020-04-24] MEDS ORDERED: ELIQUIS5 MG PO (13:16)
[2020-04-24] MEDS ORDERED: CLEOCIN HCL300 MG PO (13:17)
[2020-04-24] MEDS ORDERED: CIPRO500 M1 PO (13:17)
[2020-04-24] MEDS ORDERED: VITAMIN B12-FO1 EAC1 PO (13:18)
[2020-04-24] MEDS ORDERED: LANTUS SUBQ (13:20)
[2020-04-24] MEDS ORDERED: LOPRESSOR50 MG PO (13:20)
[2020-04-24] MEDS ORDERED: SUPER THERAVIT1 EACH PO (13:21)
[2020-04-24] MEDS ORDERED: NITROSTAT0.4 M1 SUBLING (13:22)
[2020-04-24] MEDS ORDERED: ZINC50 M2 PO (13:23)
[2020-04-24 13:58] LABS: HEMATOCRIT 34.7 % (42.0-52.0); HEMOGLOBIN 11.6 gm/dL (14.0-18.0); MCH 26.6 pg (26.0-34.0); MCHC 33.3 g/dL (28.0-37.0); MCV 79.8 fL (80.0-100.0); MPV 7.5 fl. (7.2-11.1); NUCLEATED RBCS 0 /100WBC; PLATELET COUNT* 357 thou/uL (150-400); RBC 4.35 mil/uL (4.50-6.00); RDW-CV 17.4 % (10.5-14.5); WBC 18.8 thou/uL (4.0-11.0)
[2020-04-24 14:05] LABS: CALCIUM 8.1 mg/dL (8.5-10.1); CREATININE 1.2 mg/dL (0.6-1.3); INR 1.2; POTASSIUM 4.1 mmol/L (3.5-5.1); PROTIME 11.9 Seconds (9.20-11.50)
[2020-04-24 14:15] LABS: ALBUMIN 2.2 g/dL (3.4-5.0); MAGNESIUM 1.7 mg/dL (1.8-2.4); TOTAL BILIRUBIN 0.3 mg/dL (<0.1-1.0); TOTAL PROTEIN 7.2 g/dL (6.4-8.2)
--- NOTE | 2020-04-24 14:43 | EKG ---
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[facility] : 1950 Requested By: Alisson Sauceda Order Number: [id number] MD: Sumit Jim Measurements Intervals [place] Rate: 90 P: 0 MT: 129 QRS: 20 QRSD: 90 T: 97 QT: 360 QTc: 441 Interpretive Statements Sinus rhythm Atrial premature complex Borderline repolarization abnormality Compared to ECG 03/26/2020 07:09:36 Atrial premature complex(es) now present Sinus arrhythmia no longer present Electronically Signed On 04-24-2020 14:42:44 CDT by Sumit Jim [email or web address] <ELECTRONICALLY SIGNED> By: Sumit Jim MD, [facility] 04/24/20 1442 1336 1336 Sumit Jim MD, [facility] /EPI
[2020-04-24 14:54] LABS: ABSOLUTE BASOPHILS 0.4 thou/uL (0.0-0.2); ABSOLUTE LYMPHOCYTES 1.5 thou/uL (0.8-5.3); ABSOLUTE MONOCYTES 0.9 thou/uL (0.0-1.2); ANISOCYTOSIS 2+; PLATELET ESTIMATE ADEQUATE; POIKILOCYTOSIS 1+; POLYCHROMASIA 1+
[2020-04-24 17:26] VITALS: BP 152/67
== END 2020-04-24 17:28 | disposition short-term general hospital (02) ==
LOC: M.ERS 12:56
PROVIDERS: Personal Emergency Response Attendant
DX: J98.8 Other specified respiratory disorders (principal); R06.00 Dyspnea, unspecified; R09.02 Hypoxemia; I10 Essential (primary) hypertension; E11.40 Type 2 diabetes mellitus with diabetic neuropathy, unspecified; E78.00 Pure hypercholesterolemia, unspecified; I25.10 Atherosclerotic heart disease of native coronary artery without angina pectoris; Z79.4 Long term (current) use of insulin; Z88.1 Allergy status to other antibiotic agents

== ENCOUNTER 2020-04-30 11:18 | Emergency (ER) | payer MEDICARE, OTHER ==
[~2020-04-30] VITALS: Ht 175.3 cm; Wt 95.7 kg
[~2020-04-30 11:18] MED LIST changes: +CIPRO500 M1 PO; +CLEOCIN HCL300 MG PO; +ELIQUIS5 MG PO; +LOPRESSOR50 MG PO; +NITROSTAT0.4 M1 SUBLING; +SUPER THERAVIT1 EACH PO; +VITAMIN B12-FO1 EAC1 PO; +ZINC50 M2 PO
--- NOTE | 2020-04-30 12:12 | NUR ---
IV INSERTED BY END USER SUPPORT SPECIALIST
[2020-04-30 12:22] LABS: HEMATOCRIT 35.1 % (42.0-52.0); HEMOGLOBIN 11.3 gm/dL (14.0-18.0); MCH 25.7 pg (26.0-34.0); MCHC 32.1 g/dL (28.0-37.0); MCV 79.9 fL (80.0-100.0); MPV 7.2 fl. (7.2-11.1); NUCLEATED RBCS 0 /100WBC; PLATELET COUNT* 369 thou/uL (150-400); RDW-CV 17.9 % (10.5-14.5); WBC 27.7 thou/uL (4.0-11.0)
[2020-04-30 12:29] LABS: CALCIUM 8.9 mg/dL (8.5-10.1); CREATININE 1.3 mg/dL (0.6-1.3); POTASSIUM 4.9 mmol/L (3.5-5.1)
[2020-04-30 12:34] LABS: APTT 27.6 Seconds (25.0-31.3); INR 1.1
[2020-04-30 12:41] LABS: ALBUMIN 2.6 g/dL (3.4-5.0); TOTAL BILIRUBIN 0.6 mg/dL (<0.1-1.0); TOTAL PROTEIN 7.7 g/dL (6.4-8.2)
[2020-04-30 12:52] LABS: ABSOLUTE LYMPHOCYTES 1.1 thou/uL (0.8-5.3); ABSOLUTE MONOCYTES 2.5 thou/uL (0.0-1.2); ABSOLUTE NEUTROPHILS 24.1 thou/uL (1.6-8.1); ANISOCYTOSIS 1+; MICROCYTES Occasional; PLATELET ESTIMATE ADEQUATE; POIKILOCYTOSIS 1+
--- NOTE | 2020-04-30 14:46 | NUR ---
RT AC (INSERTYED BY VASCULAR SERIALS LIBRARIAN) EXTRAVASATED/INFILTRATED WHILE ATTEMPTING CONTRAST INJECTION. LT AC WAS THEN ACCESSED BY VASCULAR ACCESS (NATALYA SHEFFIELD) WELL. THAT IV HELD. OTHER SITE REMOVED AND ICE PACK APPLIED. JW
--- NOTE | 2020-04-30 14:48 | NUR ---
METFORMIN PROTOCOL SHEET FAXED TO ER TO BE ADDED TO PT CHART.
[2020-04-30 15:40] VITALS: BP 154/45
--- NOTE | 2020-05-01 17:31 | EKG ---
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 : 1950 Requested By: Thang Vasquez Order Number: [id number] MD: Tom Varghese Measurements Intervals [place] Rate: 111 P: 63 MD: 139 QRS: 15 QRSD: 87 T: 199 QT: 296 QTc: 402 Interpretive Statements Sinus tachycardia Multiple paac's Repol abnrm, consider ischemia Compared to ECG 04/24/2020 13:36:05 Possible ischemia now present Sinus rate has increased Atrial premature complex(es) no longer present Electronically Signed On 05-01-2020 17:31:12 CDT by Tom Varghese [email or web address] <ELECTRONICALLY SIGNED> By: Tom Varghese MD, [facility] 05/01/20 1731 1145 1145 Tom Varghese MD, [facility] /EPI
== END 2020-04-30 15:40 | disposition short-term general hospital (02) ==
LOC: M.ERS 11:18 → M.TBA-ER 13:14 → M.ERS 15:40
PROVIDERS: Emergency Medicine Emergency Medical Services
DX: J96.90 Respiratory failure, unspecified, unspecified whether with hypoxia or hypercapnia (principal); E11.9 Type 2 diabetes mellitus without complications; Z20.828 Contact with and (suspected) exposure to other viral communicable diseases; Z79.4 Long term (current) use of insulin; Z88.1 Allergy status to other antibiotic agents

== ENCOUNTER → 2020-05-09 | Outpatient (CLI) | payer MEDICARE, OTHER | LOC: M.WC 02:09 | PROVIDERS: ATTEND Podiatrist Foot & Ankle Surgery | DX: E11.621 Type 2 diabetes mellitus with foot ulcer (principal); L97.516 Non-pressure chronic ulcer of other part of right foot with bone involvement without evidence of necrosis; E11.42 Type 2 diabetes mellitus with diabetic polyneuropathy; E11.69 Type 2 diabetes mellitus with other specified complication; M86.171 Other acute osteomyelitis, right ankle and foot; E11.51 Type 2 diabetes mellitus with diabetic peripheral angiopathy without gangrene; E11.22 Type 2 diabetes mellitus with diabetic chronic kidney disease; N18.9 Chronic kidney disease, unspecified; E78.5 Hyperlipidemia, unspecified; G47.33 Obstructive sleep apnea (adult) (pediatric); Z89.422 Acquired absence of other left toe(s) ==

== ENCOUNTER → 2020-05-16 | Outpatient (CLI) | payer MEDICARE, OTHER | LOC: M.WC 04:38 | PROVIDERS: ATTEND Podiatrist Foot & Ankle Surgery | DX: T81.89XD Other complications of procedures, not elsewhere classified, subsequent encounter (principal); E11.621 Type 2 diabetes mellitus with foot ulcer; L97.516 Non-pressure chronic ulcer of other part of right foot with bone involvement without evidence of necrosis; E11.22 Type 2 diabetes mellitus with diabetic chronic kidney disease; N18.9 Chronic kidney disease, unspecified; E11.69 Type 2 diabetes mellitus with other specified complication; M86.171 Other acute osteomyelitis, right ankle and foot; E11.42 Type 2 diabetes mellitus with diabetic polyneuropathy; E11.51 Type 2 diabetes mellitus with diabetic peripheral angiopathy without gangrene; E78.5 Hyperlipidemia, unspecified; G47.33 Obstructive sleep apnea (adult) (pediatric); Z89.422 Acquired absence of other left toe(s); Y83.8 Other surgical procedures as the cause of abnormal reaction of the patient, or of later complication, without mention of misadventure at the time of the procedure ==

== ENCOUNTER 2020-05-24 23:53 | Emergency (ER) | payer MEDICARE, OTHER ==
[~2020-05-24] VITALS: Ht 175.3 cm; Wt 93.4 kg
[2020-05-24 23:54] VITALS: BP 174/72
[2020-05-25 00:42] LABS: HEMATOCRIT 35.9 % (42.0-52.0); HEMOGLOBIN 11.7 gm/dL (14.0-18.0); MCH 26.4 pg (26.0-34.0); MCHC 32.8 g/dL (28.0-37.0); MCV 80.6 fL (80.0-100.0); MPV 7.6 fl. (7.2-11.1); NUCLEATED RBCS 0 /100WBC; PLATELET COUNT* 274 thou/uL (150-400); RBC 4.45 mil/uL (4.50-6.00); RDW-CV 18.2 % (10.5-14.5); WBC 22.4 thou/uL (4.0-11.0)
[2020-05-25 00:51] LABS: CALCIUM 8.4 mg/dL (8.5-10.1); CREATININE 1.3 mg/dL (0.6-1.3); POTASSIUM 3.9 mmol/L (3.5-5.1)
[2020-05-25 00:53] LABS: PROTIME 10.6 Seconds (9.20-11.50)
[2020-05-25 01:02] LABS: ALBUMIN 2.7 g/dL (3.4-5.0); MAGNESIUM 1.9 mg/dL (1.8-2.4); TOTAL BILIRUBIN 0.4 mg/dL (<0.1-1.0); TOTAL PROTEIN 7.5 g/dL (6.4-8.2)
[2020-05-25 01:05] LABS: INFLUENZA A ANTIGEN Negative (Negative); INFLUENZA B ANTIGEN Negative (Negative)
[2020-05-25 01:16] LABS: ABSOLUTE BASOPHILS 0.2 thou/uL (0.0-0.2); ABSOLUTE EOSINOPHILS 0.7 thou/uL (0.0-0.7); ABSOLUTE LYMPHOCYTES 2.2 thou/uL (0.8-5.3); ABSOLUTE MONOCYTES 0.7 thou/uL (0.0-1.2); ABSOLUTE NEUTROPHILS 18.6 thou/uL (1.6-8.1); PLATELET ESTIMATE ADEQUATE; TOXIC GRANULATION 1+
[2020-05-25 01:17] LABS: ANISOCYTOSIS Occasional; POIKILOCYTOSIS Occasional
--- NOTE | 2020-05-25 05:45 | NUR ---
THIS RN INTO ROOM AFTER PT CALLED OUT. PT ASKING WHAT WE ARE WAITING ON. I EXPLAINED TO THE PT THAT WE ARE WAITING ON HIS CTA RESULTS TO COME BACK. I EXPLAINED TO PT THAT THERE WAS A POSSIBILITY HE MIGHT NEED TO BE TRANSFERED OUT PT VERBALIZED UNDERSTANDING. I INFORMED PT THAT I WOULD KEEP HIM UPDATED ON HIS RESULTS THEY COME IN.
--- NOTE | 2020-05-25 06:10 | NUR ---
REPORT CALLED TO NATALYA CHOWDARY ON . THIS RN HEADING INTO ROOM TO TAKE PT TO ROOM 226. DR. GAUTHIER STATES THAT PT HAS TOLD HER THAT HE WANTS TO BE TRANSFERRED TO [facility] BECAUSE HE HAS BEEN IN THE ED HERE FOR TOO LONG. I EXPLAINED THAT WE HAD A ROOM READY FOR THIS PT AND HE WAS READY TO GO UP. PER DR. GAUTHIER, DO NOT TAKE PT UP TO FLOOR BECAUSE HE IS GOING TO BE TRANSFERRED FOR INFECTIOUS DISEASE CARE AT [facility].
[2020-05-25 08:11] VITALS: BP 131/54
--- NOTE | 2020-05-25 11:06 | EKG ---
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[place] : 1950 Requested By: Alyse Ma Order Number: [id number] MD: Sumit Jim Measurements Intervals [place] Rate: 100 P: 78 [place]: 146 QRS: 29 QRSD: 85 T: 86 QT: 339 QTc: 438 Interpretive Statements Sinus tachycardia Atrial premature complexes Compared to ECG 04/30/2020 11:45:28 Atrial premature complex(es) now present Possible ischemia no longer present Electronically Signed On 05-25-2020 11:06:07 CDT by Sumit Jim [email or web address] <ELECTRONICALLY SIGNED> By: Sumit Jim MD, [facility] 05/25/20 1106 2355 2355 Sumit Jim MD, [facility] /EPI
== END 2020-05-25 08:14 | disposition still patient (30) ==
LOC: M.ERS 23:53 → M.TBA-ER 05-25 04:18 → M.ERS 05-25 08:14
PROVIDERS: Emergency Medicine
DX: R07.9 Chest pain, unspecified (principal); Z20.828 Contact with and (suspected) exposure to other viral communicable diseases; R09.02 Hypoxemia; R11.10 Vomiting, unspecified; I11.0 Hypertensive heart disease with heart failure; I50.9 Heart failure, unspecified; E11.42 Type 2 diabetes mellitus with diabetic polyneuropathy; Z79.899 Other long term (current) drug therapy; Z79.4 Long term (current) use of insulin; Z88.1 Allergy status to other antibiotic agents

== ENCOUNTER → 2020-06-06 | Outpatient (CLI) | payer MEDICARE, OTHER | LOC: M.WC 05:13 | PROVIDERS: ATTEND Podiatrist Foot & Ankle Surgery | DX: T81.89XD Other complications of procedures, not elsewhere classified, subsequent encounter (principal); E11.621 Type 2 diabetes mellitus with foot ulcer; L97.516 Non-pressure chronic ulcer of other part of right foot with bone involvement without evidence of necrosis; E11.51 Type 2 diabetes mellitus with diabetic peripheral angiopathy without gangrene; E11.22 Type 2 diabetes mellitus with diabetic chronic kidney disease; N18.9 Chronic kidney disease, unspecified; E11.69 Type 2 diabetes mellitus with other specified complication; M86.171 Other acute osteomyelitis, right ankle and foot; E11.42 Type 2 diabetes mellitus with diabetic polyneuropathy; E78.5 Hyperlipidemia, unspecified; G47.33 Obstructive sleep apnea (adult) (pediatric); Z89.422 Acquired absence of other left toe(s); Y83.8 Other surgical procedures as the cause of abnormal reaction of the patient, or of later complication, without mention of misadventure at the time of the procedure ==

== ENCOUNTER → 2020-06-20 | Outpatient (CLI) | payer MEDICARE, OTHER | LOC: M.WC 05:08 | PROVIDERS: ATTEND Podiatrist Foot & Ankle Surgery | DX: E11.621 Type 2 diabetes mellitus with foot ulcer (principal); L97.512 Non-pressure chronic ulcer of other part of right foot with fat layer exposed; E11.40 Type 2 diabetes mellitus with diabetic neuropathy, unspecified; E11.69 Type 2 diabetes mellitus with other specified complication; M86.171 Other acute osteomyelitis, right ankle and foot; E11.22 Type 2 diabetes mellitus with diabetic chronic kidney disease; N18.9 Chronic kidney disease, unspecified; E11.51 Type 2 diabetes mellitus with diabetic peripheral angiopathy without gangrene; E78.5 Hyperlipidemia, unspecified; G47.33 Obstructive sleep apnea (adult) (pediatric); Z89.422 Acquired absence of other left toe(s) ==

== ENCOUNTER → 2020-07-04 | Outpatient (CLI) | payer MEDICARE, OTHER | LOC: M.WC 09:24 | PROVIDERS: ATTEND Podiatrist Foot & Ankle Surgery | DX: T81.89XD Other complications of procedures, not elsewhere classified, subsequent encounter (principal); E11.621 Type 2 diabetes mellitus with foot ulcer; L97.511 Non-pressure chronic ulcer of other part of right foot limited to breakdown of skin; E11.40 Type 2 diabetes mellitus with diabetic neuropathy, unspecified; E11.69 Type 2 diabetes mellitus with other specified complication; M86.171 Other acute osteomyelitis, right ankle and foot; E11.22 Type 2 diabetes mellitus with diabetic chronic kidney disease; N18.9 Chronic kidney disease, unspecified; E11.51 Type 2 diabetes mellitus with diabetic peripheral angiopathy without gangrene; E78.5 Hyperlipidemia, unspecified; G47.33 Obstructive sleep apnea (adult) (pediatric); Z89.422 Acquired absence of other left toe(s); Y83.8 Other surgical procedures as the cause of abnormal reaction of the patient, or of later complication, without mention of misadventure at the time of the procedure ==